=== PATIENT | male | born 1995 | race Two or more races ===

== ENCOUNTER 2021-01-04 11:23 | Outpatient (REF) | payer MEDICAID, SELFPAY | END 2021-01-04 11:24 | disposition home or self-care (01) | LOC: HO.LAB 11:23 | PROVIDERS: Visit Provider Internal Medicine | DX: Z20.822 Contact with and (suspected) exposure to COVID-19 (principal) | CPT/HCPCS: C9803; U0003; U0005 ==

== ENCOUNTER 2021-09-16 16:55 | Emergency (ER) | payer MEDICAID, SELFPAY ==
[2021-09-16 17:48] VITALS: BP 155/105; PULSE 80; RESP 16; TEMP 37.1; O2SAT 99; BMI 30.1
--- NOTE | 2021-09-16 17:51 | ED_ITS ---
HPI - General Adult General Chief complaint: Ear Problems Stated complaint: ear infection and mouth sores Time Seen by Provider: 09/16/21 17:51 Related Data Previous Rx's Medication Instructions Recorded Magic Mouthwash 10 ml PO Q4-6H PRN 5 Days #240 ml 09/16/21 Diphen/Lido/Antacid 1:1:1 240 mL suspension amoxicillin 875 mg-potassium 1 tab PO Q12H 10 Days #20 tab 09/16/21 clavulanate 125 mg tablet (Augmentin) Allergies Allergy/AdvReac Type Severity Reaction Status Date / Time aspirin [ASA] Allergy Unknown BREATHING Verified 09/16/21 21:34 DIFFICULTY ibuprofen [IBUPROFEN] Allergy Unknown UNKNOWN Verified 09/16/21 21:34 PMFSH Past Medical History Medical History Asthma Social History Social History Advance Directives: No Advance Directives Information Provided: No Physical Exam Vital Signs: Vital Signs: Last Vital Signs Temp 98.8 F 09/16/21 17:48 Pulse 68 09/16/21 21:33 Resp 17 09/16/21 21:33 BP 126/76 09/16/21 21:33 Pulse Ox 99 09/16/21 21:33 BMI result Body Mass Index 30.1 Course Course Course Narrative: 17:50pm - 25-year-old male presenting to the ED with complaints of multiple mouth sores and right ear pain/cerumen impaction since yesterday worse today. Denies recent travel or sick contacts. Although he does work for [employer]. Patient will be sent back to the waiting room for further evaluation treatment emergency Minor Care. Discharge Plan Discharge Clinical Impression: Otitis media, Aphthous ulcer of mouth, Hypertension Patient Disposition: Home, Self-Care Instructions: Heart Healthy Diet (ED), Canker Sores (ED), Ear Infection (ED), Hypertension (ED) Additional Instructions: You were evaluated for recurrent ear pain and ulcerations to your mouth. You bilateral ear infection with abscess ulcers. Please take Augmentin twice a day for your ear infections. Please use magic mouthwash every 4-6 hours as directed for mouth pain. Alternate Tylenol 650 mg every 6 hours and Motrin 600 mg every 6 hours as needed for pain management. Please write down what time he take these medications to prevent accidental overdose. Please follow-up with primary care physician. Your blood pressure was elevated, please establish primary care and have blood pressure re-evaluated. You may need blood pressure medications. Thank you for choosing this emergency department for evaluation. Please follow-up with primary care physician as needed. Return to the emergency department for any new, concerning, or worsening symptoms. Prescriptions: New amoxicillin-pot clavulanate [Augmentin] 875-125 mg tablet 1 tab PO Q12H 10 Days Qty: 20 RF: 0 Magic Mouthwash Diphen/Lido/Antacid 1:1:1 240 mL suspension 10 ml PO Q4-6H PRN (Reason: Mouth ulcerations) 5 Days Qty: 240 RF: 0 Referrals: [facility] [Provider [facility]] - 2 days [facility] [place] [facility]Provider Group] - 2 days Stand Alone Forms: Work/School Release Interventions: ED Discharge Assessment Last Done: 09/16/21 21:36 Discharge Date/Time: 09/16/21 21:42
--- NOTE | 2021-09-16 20:51 | ED_ITS ---
HPI - Ear Problem General Chief complaint: Ear Problems Stated complaint: ear infection and mouth sores Time Seen by Provider: 09/16/21 17:51 Source: patient Mode of arrival: ambulatory Limitations: no limitations History of Present Illness HPI Narrative: 25-year-old male presents with bilateral ear pain and multiple ulcerations in his mouth. Has a history of aphthous ulcers since age 18. MD Complaint: ear pain Location: bilateral Duration: constant Severity: moderate Relieving factors: nothing Exacerbating factors: chewing and palpation Context: recent illness Discharge from ear: no Associated symptoms ear: headache and other (Aphthous ulcers) Treatment prior to arrival: oral analgesic Related Data Previous Rx's Medication Instructions Recorded Magic Mouthwash 10 ml PO Q4-6H PRN 5 Days #240 ml 09/16/21 Diphen/Lido/Antacid 1:1:1 240 mL suspension amoxicillin 875 mg-potassium 1 tab PO Q12H 10 Days #20 tab 09/16/21 clavulanate 125 mg tablet (Augmentin) Allergies Allergy/AdvReac Type Severity Reaction Status Date / Time aspirin [ASA] Allergy Unknown BREATHING Verified 09/16/21 21:34 DIFFICULTY ibuprofen [IBUPROFEN] Allergy Unknown UNKNOWN Verified 09/16/21 21:34 Review of Systems Review of Systems: Constitutional: No Fever, No Chills ENT/Mouth: Positive mouth pain,Positive bilateral Ear Pain, No Hoarseness, No sore throat Eyes: No Eye Pain, No Swelling, No Redness, No Foreign Body Cardiovascular: No Chest Pain, No SOB Respiratory: No Cough, No Dyspnea Gastrointestinal: No Nausea, No Vomiting, No Diarrhea, No abdominal Pain Genitourinary: No Dysuria, No Hematuria Musculoskeletal: No joint pain, No Myalgias, No Joint Swelling Skin: No Skin lacerations, No rash Neuro: No Weakness, No Numbness, No Paresthesias, No Loss of Consciousness, No Dizziness, No Headache Psych: No Anxiety/Panic, No Depression Heme/Lymph: no easy bruising, no Lymphadenopathy Endocrine: No Polyuria, No Polydipsia Yes all other systems are reviewed and are negative PMFSH Past Medical History Attestation statement: The following information was validated with the patient. Source: old records reviewed Medical History Asthma Social History Social History Advance Directives: No Advance Directives Information Provided: No Physical Exam Vital Signs: Vital Signs: Last Vital Signs Temp 98.8 F 09/16/21 17:48 Pulse 68 09/16/21 21:33 Resp 17 09/16/21 21:33 BP 126/76 09/16/21 21:33 Pulse Ox 99 09/16/21 21:33 BMI result Body Mass Index 30.1 Appearance: Alert. Oriented X3. No acute distress. Head: Normal external exam. Normocephalic. Atraumatic. No Curry signs noted. No raccoon eyes noted Eyes: PERRLA. EOMI. Conjunctiva and sclera normal. Eyelids normal. ENT: TM's bulging and suppurative, membranes intact no perforations noted. Aphthous ulcerations noted to tongue buccal mucosa. Pharynx normal. Uvula midline. Moist mucous membranes. No trismus noted. No drooling noted. No muffled voice noted. Neck: Normal inspection. Neck supple. No adenopathy. No meningeal signs. No neck mass noted. Full range of motion. Strength 5/5 bands resistance. No axial loading tenderness. CVS: Normal heart rate and rhythm. Heart sound normal. No murmurs noted. Pulses equal to all extremities. Respiratory: No respiratory distress. Painless inspiration. Breath sounds normal. No wheezes/rales/rhonchi noted. Chest nontender. No accessory muscle usage noted or decreased air movement noted. Abdomen: Soft and nontender. Bowel sounds normal in all 4 quadrants. No distention noted. No hepatosplenomegaly noted. No visible injury noted. Back: No CVA tenderness. Full range of motion noted. Skin: Skin warm and dry. Normal skin color. Normal skin turgor. No rashes/lesions/lacerations noted. Extremities: No lower extremity edema. Extremities exhibit normal range of motion. Extremities nontender. Neuro: cranial nerves 2-12 intact, no focal neural deficits, strength 5/5 to all extremities, No motor deficit. No sensory deficit. Course Course Course Narrative: 25-year-old male presents with multiple complaints. States to have bilateral ear pain and multiple mouth ulcerations. Has been getting ulcerations in his mouth since age 18. No indication of Kawasaki, no rashes noted to extremities. No hepatosplenomegaly or abdominal tenderness to palpation. No nuchal rigidity, has full range of motion to neck and extremities. Not have any cervical lymphadenopathy, supraclavicular, and axillary adenopathy. Bilateral tympanic membranes are erythematous bulging and suppurative of without perforation. Will treat with Augmentin and Magic mouthwash. Patient does understand that he must obtain primary care physician, does have an elevated blood pressure and needs follow-up. Patient verbalized understanding of and agrees to plan of care discharge home. MDM - Ear MDM Narrative Medical decision making narrative: Canker sores, herpes simplex, aphthous ulcers Differential Diagnosis Differential diagnosis: Likely otitis externa, otitis media and ruptured TM Medical Records Attestation: I reviewed the patient's medical records. Discharge Plan Discharge Clinical Impression: Aphthous ulcer of mouth Otitis media Qualifiers: Otitis media type: suppurative Chronicity: acute Laterality: bilateral Recurrence: recurrent Spontaneous tympanic membrane rupture: without spontaneous rupture Qualified Code(s): H66.006 - Acute suppurative otitis media without spontaneous rupture of ear drum, recurrent, bilateral Hypertension Qualifiers: Hypertension type: unspecified Qualified Code(s): I10 - Essential (primary) hypertension Patient Disposition: Home, Self-Care Instructions: Heart Healthy Diet (ED), Canker Sores (ED), Ear Infection (ED), Hypertension (ED) Additional Instructions: You were evaluated for recurrent ear pain and ulcerations to your mouth. You bilateral ear infection with abscess ulcers. Please take Augmentin twice a day for your ear infections. Please use magic mouthwash every 4-6 hours as directed for mouth pain. Alternate Tylenol 650 mg every 6 hours and Motrin 600 mg every 6 hours as needed for pain management. Please write down what time he take these medications to prevent accidental overdose. Please follow-up with primary care physician. Your blood pressure was elevated, please establish primary care and have blood pressure re-evaluated. You may need blood pressure medications. Thank you for choosing this emergency department for evaluation. Please follow-up with primary care physician as needed. Return to the emergency department for any new, concerning, or worsening symptoms. Prescriptions: New amoxicillin-pot clavulanate [Augmentin] 875-125 mg tablet 1 tab PO Q12H 10 Days Qty: 20 RF: 0 Magic Mouthwash Diphen/Lido/Antacid 1:1:1 240 mL suspension 10 ml PO Q4-6H PRN (Reason: Mouth ulcerations) 5 Days Qty: 240 RF: 0 Referrals: [facility] [Provider Group] - 2 days [facility] [place] [facility] [Provider Group] - 2 days Stand Alone Forms: Work/School Release Interventions: ED Discharge Assessment Last Done: 09/16/21 21:36 Discharge Date/Time: 09/16/21 21:42
[2021-09-16 21:33] VITALS: BP 126/76; PULSE 68; RESP 17; O2SAT 99
[2021-09-16] MEDS: Mag&Al/Sim/Diphenhyd/Lidocaine 10 ML ORAL.SUSP PO (21:34)
[2021-09-16] MEDS: Amoxicillin/Potassium Clav 875 MG TABLET PO (21:34)
== END 2021-09-16 21:42 | disposition home or self-care (01) ==
PROVIDERS: Emergency Provider Emergency Medicine
DX: K12.0 Recurrent oral aphthae (principal); H66.006 Acute suppurative otitis media without spontaneous rupture of ear drum, recurrent, bilateral; H92.03 Otalgia, bilateral; I10 Essential (primary) hypertension
CPT/HCPCS: 99283

== ENCOUNTER 2021-11-03 18:04 | Emergency (ER) | payer MEDICAID, SELFPAY ==
--- NOTE | ~2021-11-03 | CT_ITS ---
EXAMINATION: CT ABDOMEN AND PELVIS WITH CONTRAST CLINICAL INFORMATION: Severe rectal pain with question of abscess COMPARISON: None TECHNIQUE: Multidetector volumetric images were obtained from the superior aspect of the liver through the pubic symphysis following administration 85 mL of Omnipaque 350 intravenous contrast. Sagittal and coronal reformatted images were obtained on the technologist's workstation. Oral contrast: No This CT examination was performed using dose optimization techniques as appropriate, variously including the following: *Automated exposure control *Adjustment of mA and/or kV according to patient size (this includes techniques or standardized protocols for targeted exams where dose is matched to indication/reason for exam; i.e. extremities or head) *Use of iterative reconstruction technique DLP: 827 mGy-cm FINDINGS: LUNG BASES: The visualized lung bases are unremarkable. LIVER, GALLBLADDER, AND BILIARY TREE: The liver is enlarged measuring 24 cm in greatest length and demonstrates decreased attenuation consistent with hepatic steatosis. No focal hepatic lesion or biliary ductal dilatation is present. The gallbladder is unremarkable with no evidence of radiopaque gallstones, gallbladder wall thickening, or obvious pericholecystic inflammatory changes. PANCREAS: Unremarkable. SPLEEN: Mildly prominent spleen 12.5 cm in greatest cephalocaudad dimension. ADRENAL GLANDS: Unremarkable. KIDNEYS AND URETERS: The kidneys are normal in size, shape, and attenuation. There is a duplex collecting system on the right at least down to the level of the distal ureter. No hydronephrosis, hydroureter, or calculi seen. No perinephric stranding. BLADDER: Unremarkable. GASTROINTESTINAL TRACT: The small and large bowel are unremarkable aside from colonic diverticula without diverticulitis. The appendix is unremarkable. A small 1.1 x 0.7 x 0.8 cm midline peroneal/perianal fluid collection is present ([phone]), presumably a small abscess. ABDOMINAL WALL: No significant hernia is appreciated. LYMPH NODES: No retroperitoneal lymphadenopathy seen. Some mildly prominent left external iliac lymph nodes are seen. VASCULAR: Unremarkable. 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 CT/CT abdomen pelvis w con IMPRESSION: Small fluid collection in the perineum measuring 1.1 cm just posterior to the rectum/anus. These findings would be consistent with a small abscess. Fleischner guidelines were followed.
[2021-11-03 18:07] VITALS: BP 179/89; PULSE 92; RESP 20; TEMP 36.7; O2SAT 100; BMI 32.5
--- NOTE | 2021-11-03 20:22 | ED_ITS ---
HPI - Abdominal Pain General Chief Complaint: Abdominal Pain Stated Complaint: rectal pain Time Seen by Provider: 11/03/21 20:20 Source: patient Mode of arrival: ambulatory Limitations: no limitations History of Present Illness HPI narrative: 25 y/o male presents to the ER with rectal pain for the last 1 week. He reports severe pain with bowel movements and has been constipation. Last BM 1 hour ago and was excruciating. He reports when the pain started he had small amounts of blood on the toilet paper but it self resolved. He thought he had a hemorrhoid so has been using Preparation H without any improvement in his pain. He denies abdominal pain, N/V/D. No fevers. He denies any history of anal sex or any anal FB. MD elicited complaint: other (rectal pain) Pertinent past history: constipation Onset (ago): week(s) (1) Pain Consistency: constant Location: other (rectal) Severity: severe Pain scale (0-10): 10 Quality: sharp Migration to: no migration Exacerbating factors: bowel movement Relieving factors: nothing Associated symptoms: denies other symptoms Related Data Previous Rx's Medication Instructions Recorded Magic Mouthwash 10 ml PO Q4-6H PRN 5 Days #240 ml 09/16/21 Diphen/Lido/Antacid 1:1:1 240 mL suspension amoxicillin 875 mg-potassium 1 tab PO Q12H 10 Days #20 tab 09/16/21 clavulanate 125 mg tablet (Augmentin) amoxicillin 875 mg-potassium 1 tab PO BID #20 tab 11/03/21 clavulanate 125 mg tablet (Augmentin) oxycodone 5 mg tablet 5 mg PO Q4H PRN #10 tab 11/03/21 Allergies Allergy/AdvReac Type Severity Reaction Status Date / Time aspirin [ASA] Allergy Unknown BREATHING Verified 09/16/21 21:34 DIFFICULTY ibuprofen [IBUPROFEN] Allergy Unknown UNKNOWN Verified 09/16/21 21:34 Review of Systems Review of Systems Constitutional: No Fever, No Chills ENT/Mouth: No sore throat Cardiovascular: No Chest Pain, No SOB, No Orthopnea, No Edema Respiratory: No Cough, No Sputum, No Wheezing, No dyspnea Gastrointestinal: No Nausea, No Vomiting, No Diarrhea, No abdominal Pain, No Hematochezia, No Melena, + Rectal pain Genitourinary: No Dysuria, No Urinary Frequency, No Hematuria Musculoskeletal: No joint pain, No Myalgias Skin: No Skin Lesions, No rash Neuro: No Weakness, No Numbness, No Dizziness, No Headache Psych: + Anxiety/Panic, No Depression Heme/Lymph: No Bruising, No Lymphadenopathy Physical Exam Verdana 4l Vital Signs: Verdana 4d Verdana 4d Vital Signs: Verdana 4d Verdana 4Bd Last Vital Signs Verdana 4d Recordist New 4d Recordist New 4d Temp 97.7 F 11/03/21 23:01 Recordist New 4d Pulse 61 11/03/21 23:01 Recordist New 4d Resp 16 11/03/21 23:01 BP 126/75 11/03/21 23:01 Pulse Ox 98 11/03/21 23:01 BMI result Body Mass Index 32.5 Appearance: Alert. Oriented X3. No acute distress. Eyes: Pupils equal, round and reactive to light. ENT: Pharynx normal. Neck: Normal inspection. Neck supple. CVS: Normal heart rate and rhythm. Pulses normal. Respiratory: No respiratory distress. Breath sounds normal. Abdomen: Soft and nontender. +BS x4 WALT: normal external inspection, no visible hemorrhoids, normal rectal tone with significant tenderness, no palpable internal hemorrhoid, no palpable abscess, fluctuance or mass Skin: Skin warm and dry. Normal skin color. Normal skin turgor. No rashes. Extremities: No lower extremity edema. Neuro: Oriented X 3. No motor deficit. No sensory deficit. Course Course Course Narrative: 25-year-old otherwise healthy male presents to the ER with rectal pain for last 1 week. He reports small amount of blood on the toilet tissue when it 1st started which self-resolved. No history of hemorrhoids. No visible hemorrhoids on examination. He has significant rectal tenderness without palpable abscess. His pain is out of proportion to examination findings. Will get a CT scan for further evaluation to rule out perirectal abscess. IV morphine ordered for his severe pain as well as IV fluids. Reevaluation(s) Reevaluation #1: WBC 11.3. CT scan showing a small fluid collection in the perineum measuring 1.1 cm just posterior to the rectum/anus. This is consistent with a small rectal abscess. Case was discussed with Dr. Millard as who states the patient can be safely discharged home with oral antibiotics and pain control, plan to follow-up in the office with him tomorrow. Instructions and results were discussed with the patient at the bedside. He will call Dr. Millard his office 1st thing tomorrow morning to arrange an appointment. Stable for discharge home with close outpatient follow-up. Consultations Consultation #1: Dr. jerome - general surgery MDM - Abdominal Pain Lab Data Result diagrams: 11/03/21 21:25 11/03/21 21:25 Labs: Lab Results 11/03/21 11/03/21 11/03/21 Range/Units 21:25 21:25 21:25 WBC 11.3 H (4.8-10.8) X10*3/uL RBC 5.43 (4.60-5.80) X10*6/uL Hgb 15.2 (14.0-18.0) g/dl Hct 46.2 (42.0-52.0) % MCV 85.1 (80.0-98.0) fL MCH 28.0 (27.0-33.0) pg MCHC 32.9 (31.0-36.0) g/dl RDW 12.3 (11.0-16.0) % Plt Count 303 (160-400) X10*3/uL MPV 9.8 (9.4-12.4) fL Immature Gran % (Auto) 0.3 (0.0-0.4) % Neut % (Auto) 74.0 H (45-73) % Lymph % (Auto) 16.4 L (20-40) % Winston % (Auto) 7.1 (2-11) % Eos % (Auto) 1.7 (0-4) % Baso % (Auto) 0.5 (0-2) % Lymph # (Auto) 1.8 (1.2-4.9) X10*3/uL Winston # (Auto) 0.8 (0.1-1.2) X10*3/uL Eos # (Auto) 0.2 (0.0-0.4) X10*3/uL Baso # (Auto) 0.1 (0.0-0.2) X10*3/uL Abs Immat Gran (auto) 0.03 (0.00-0.03) X10*3/uL Absolute Neuts (auto) 8.3 (2.0-8.3) x10*3/uL Absolute Nucleated RBC 0.000 (0.0-0.012) X10*3/uL Nucleated RBC % (auto) 0.0 (0.0-0.2) /100WBC PT 12.3 (9.9-13.0) SEC INR 1.1 (0.9-1.1) APTT 48.3 H (24.1-38.0) SEC Sodium 139 (135-145) mmol/L Potassium 4.2 (3.3-5.1) mmol/L Chloride 104 (96-108) mmol/L Carbon Dioxide 26 (22-29) mmol/L Anion Gap 13 (12-20) BUN 14 (9-16) mg/dL Creatinine 0.98 (0.5-1.4) mg/dL Estim Creat Clear Calc 136.5 Estimated GFR > 60 Random Glucose 98 (60-115) mg/dL Calcium 9.8 (8.4-10.2) mg/dL Magnesium 2.2 (1.6-2.6) mg/dL Total Bilirubin 1.3 H (0.0-1.0) mg/dL Direct Bilirubin 0.4 (0.0-0.5) mg/dL AST 22 (5-37) U/L ALT 22 (0-40) U/L Alkaline Phosphatase 74 (39-117) U/L Total Protein 8.3 H (6.5-8.0) g/dL Albumin 4.9 (3.5-5.0) g/dL Discharge Plan Discharge Clinical Impression: Mayte-rectal abscess Patient Disposition: Home, Self-Care Instructions: Rectal Abscess (ED) Additional Instructions: Your CT scan showed a small 1 cm abscess within the rectum. You need to follow-up with this general surgeon 1st thing tomorrow. Call the office at 08:30. Name and number below. They are expecting your call. Take the prescribed antibiotic as directed. Take the prescribed pain medication as needed for severe pain. Recommend Tylenol around the clock. Do not take more than 4000 mg in a 24 hour period. If you develop new or worsening symptoms call 911 or come back to the ER for further evaluation. Prescriptions: New amoxicillin-pot clavulanate [Augmentin] 875-125 mg tablet 1 tab PO BID Qty: 20 0RF oxycodone 5 mg tablet 5 mg PO Q4H PRN (Reason: pain) Qty: 10 0RF No Action amoxicillin-pot clavulanate [Augmentin] 875-125 mg tablet 1 tab PO Q12H 10 Days Qty: 20 0RF Magic Mouthwash Diphen/Lido/Antacid 1:1:1 240 mL suspension 10 ml PO Q4-6H PRN (Reason: Mouth ulcerations) 5 Days Qty: 240 0RF Rx Instructions: Lidocaine Viscous 2 % 80mL; diphenhydramine 12.5 mg/5 mL 80mL; aluminum-mag hydrox-simeth 981gd-904dz-30hg/5mL 80mL Referrals: Jordan Jerome MD [Physician] - 1 day (perirectal abscess) PMFSH Past Medical History Medical History Asthma Social History Social History Advance Directives: No
[2021-11-03] MEDS: 0.9 % Sodium Chloride 1,000 ML 999 ML IVCONT (21:26)
[2021-11-03] MEDS: Morphine Sulfate 4 MG/ML CARTRIDGE IVPUSH (21:26)
[2021-11-03 21:36] LABS: MANUAL DIFF FLAG NO
[2021-11-03 21:39] LABS: Basophils Absolute Auto 0.1 X10*3/uL (0.0-0.2); Basophils Percent Auto 0.5 % (0-2); Eosinophils Absolute Auto 0.2 X10*3/uL (0.0-0.4); Eosinophils Percent Auto 1.7 % (0-4); Hematocrit 46.2 % (42.0-52.0); Hemoglobin 15.2 g/dl (14.0-18.0); Imm Gran Abs Auto 0.03 X10*3/uL (0.00-0.03); Imm Gran Pct Auto 0.3 % (0.0-0.4); Lymphocytes Absolute Auto 1.8 X10*3/uL (1.2-4.9); Lymphocytes Percent Auto 16.4 % (20-40); Mean Corpuscular HGB Conc 32.9 g/dl (31.0-36.0); Mean Corpuscular Volume 85.1 fL (80.0-98.0); Mean Platelet Volume 9.8 fL (9.4-12.4); Monocytes Absolute Auto 0.8 X10*3/uL (0.1-1.2); Monocytes Percent Auto 7.1 % (2-11); Neutrophils Absolute Auto 8.3 x10*3/uL (2.0-8.3); Platelet Count 303 X10*3/uL (160-400); Red Blood Count 5.43 X10*6/uL (4.60-5.80); Red Cell Distribution Width 12.3 % (11.0-16.0); White Blood Count 11.3 X10*3/uL (4.8-10.8)
[2021-11-03 21:48] LABS: INTERNATIONAL NORM RATIO 1.1 (0.9-1.1); Prothrombin Time 12.3 SEC (9.9-13.0)
[2021-11-03 21:51] LABS: Alanine Aminotransferase 22 U/L (0-40); Albumin Level 4.9 g/dL (3.5-5.0); Alkaline Phosphatase 74 U/L (39-117); Anion Gap 13 (12-20); Aspartate Amino Transferase 22 U/L (5-37); Bilirubin Direct 0.4 mg/dL (0.0-0.5); Bilirubin Total 1.3 mg/dL (0.0-1.0); Blood Urea Nitrogen 14 mg/dL (9-16); Calcium 9.8 mg/dL (8.4-10.2); Carbon Dioxide 26 mmol/L (22-29); Chloride 104 mmol/L (96-108); Creatinine Clr Calc Pharmacy 136.5; Estimated Glomerular Filt Rate > 60; Glucose Random 98 mg/dL (60-115); Magnesium 2.2 mg/dL (1.6-2.6); Partial Thromboplastin Time 48.3 SEC (24.1-38.0); Potassium 4.2 mmol/L (3.3-5.1); Sodium 139 mmol/L (135-145); Total Protein 8.3 g/dL (6.5-8.0)
[2021-11-03] MEDS: iohexoL 350 MG/ML 100 ML INFUS..BTL 85 ML IV (22:24)
[2021-11-03 23:01] VITALS: BP 126/75; PULSE 61; RESP 16; TEMP 36.5; O2SAT 98
[2021-11-03] MEDS: Amoxicillin/Potassium Clav 875 MG TABLET PO (23:41)
[2021-11-03] MEDS: oxyCODONE HCl Immed Release 5 MG TABLET PO (23:41)
== END 2021-11-03 23:50 | disposition home or self-care (01) ==
PROVIDERS: Physician Assistant; Emergency Provider Emergency Medicine Emergency Medical Services
DX: K61.1 Rectal abscess (principal); Z79.899 Other long term (current) drug therapy
CPT/HCPCS: 36415; 74177; 80048; 80076; 83735; 85025; 85610; 85730; 96360; 96361; 96375; 99284; J2270; Q9967

== ENCOUNTER → 2021-11-06 15:01 | Outpatient (BNVA) | payer MEDICAID, SELFPAY | PROVIDERS: Visit Provider Surgery | DX: K61.0 Anal abscess (principal) | CPT/HCPCS: 99202 ==

== ENCOUNTER 2021-11-07 13:04 | Day surgery (SDC) | payer MEDICAID, SELFPAY ==
[2021-11-07] VITALS (9 sets, daily range): BP systolic 134–152; BP diastolic 74–99; PULSE 81–96; RESP 16–18; TEMP 36.5–36.6; O2SAT 96–100; BMI 33.7
--- NOTE | 2021-11-07 13:59 | HO.ANESPROP2 ---
HPI - Anesthesia Eval Consult details Narrative: Perirectal abscess PMFSH Active Problems Active Problems: All Active Problems (Updated 11/07/21 @ 13:29 by Ursula Hsieh RN) Perianal abscess (Acute) Past Medical History Medical History (Updated 11/07/21 @ 13:29 by Ursula Hsieh, RN) Asthma Bradycardia Perianal abscess Family History Family history of problems with anesthesia: No Surgical History History of Problems with Anesthesia: No Social History Social History Patient Tobacco Use Status: Never used Tobacco Use of substances other than those prescribed or required for medical reasons: No Are you DNR?: No Advance Directives: No Advance Directives Information Provided: Yes Recently lost weight without trying: No Nutrition Risks: No Nutritional Risk Meds Allergies Allergy/AdvReac Type Severity Reaction Status Date / Time aspirin [ASA] Allergy Unknown BREATHING Verified 11/06/21 15:22 DIFFICULTY ibuprofen [IBUPROFEN] Allergy Unknown UNKNOWN Verified 11/06/21 15:22 Exam Exam Date and Time: November 07, 2021 1359 Height,Weight and Vital Signs: Height 5 ft 9 in Weight 103.873 kg Airway Mallampati Class: II TM Dist: >3cm Neck ROM: Full Loose/Missing/Broken Teeth: No Heart: [id number] Lungs: cta b/l Assessment and Plan Assessment Anesthesia Assessment: Anesthesia Plan Discussed and Chart Reviewed Final Anesthetic Review Family History of Problems with Anesthesia: No History of Problems with Anesthesia: No NPO: Yes ASA Class: II Final Preanesthetic Review: No Changes in Pt Med Stat, Meds/Allgs Chart Reviewed, Consent Obtained/Reviewed and Anes Risks/Benef Reviewed Patient Risk: Intermediate Procedure Risk: Low Assessment/Block/Sedation in SS: Assess/Block/Sedation-SS Anesthetic Plan Anesthetic Plan: GA and Agree w/ Assess. and Plan Disposition: Standard PACU
--- NOTE | 2021-11-07 14:04 | MHC.SHP ---
Pre-Procedural Eval Section A Date of Service: 11/07/21 The patient is an INPATIENT: No Changes since office visit: No Cold of Flu in the past 2 weeks, No New Medical Problems, No Changes in Medication and No Patient answered all questions The History & Physical has been completed within 30 days and I have reviewed it.: Yes Section B Chief Complaint: hemorrhoids Allergies: Allergies Allergy/AdvReac Type Severity Reaction Status Date / Time aspirin [ASA] Allergy Unknown BREATHING Verified 11/06/21 15:22 DIFFICULTY ibuprofen [IBUPROFEN] Allergy Unknown UNKNOWN Verified 11/06/21 15:22 Plan I have reviewed the history and physical and performed a pertinent physical examination on my patient. No changes have occurred unless specified.
--- NOTE | 2021-11-07 15:22 | W.PM.OPN ---
Operative Note Operative Note Date of Service: 11/07/21 Narrative: Preop diagnosis: Anal pain question of perianal abscess Postop diagnosis: anal pain with no identifiable abscess, induration, or swelling Procedure: Exam under anesthesia Surgeon: Jordan Jerome Patient is a 25-year-old male who went to the ER 3 days ago because of anal pain. His CAT scan seemed to suggest a small abscess in the perianal area. He was started on oral antibiotics as there was no fluctuance or induration. he was seen in the office yesterday and he stated that he continued severe pain. He seemed to be tender all around the perianal area although there was no obvious fluctuance, drainage, or induration I had reviewed his CAT scan with the radiologist Dr. Hernandez, in his stated that there may not be any fluid that may be drainable at this time.In view of severe pain However, I explained to the patient it may be best to proceed with exam under anesthesia and we can see if there are any fluctuant areas in the anal canal. He understood the technique of the procedure. He was aware of the risks, benefits, and alternatives. He was brought to the operating placed in prone abhi-knife position under general anesthesia via endotracheal tube. The buttocks were retracted with wide tape laterally. The perianal area was prepped draped usual sterile fashion. Surgical time-out was done. Lidocaine 1% was used to infiltrate the perianal area. Examination of the anal orifice did not reveal any fluctuance nor palpable duration no cellulitis or redness I inserted abuse Lombardi retractor. I examined the anal canal circumferentially. Again there was no note of any swelling induration or fluctuance. I palpated for the entire anal canal and I could not feel any obvious abscess or induration. A focus more the left side as the CT scan suggested that the small fluid collection on could maybe in the left perianal area. I made 2 small incisions 1 in the area of the intersphincteric groove using a blade 11 and I explored the intersphincteric space to see if there was any intersphincteric abscess and there was none. I also made a short incision in the anal canal on the left side in the mucosa submucosa to see if there was any submucosal abscess. Again with exploring this using the hemostat, I could not identify any fluid collection . I closed both incisions with a running chromic 3-0 stitch with additional sutures placed for hemostasis I proceeded to continue to examine and palpate the entire sent comfortable of the anal canal. Again I could not identify any pathology or any unusual characteristics. I therefore completed the procedure. I infiltrated the perianal area with Marcaine 0.5% for postop analgesia. The patient tolerated the procedure well. There were no complications noted. The patient was extubated without difficulty and transferred to the recovery room with stable vital signs.
[2021-11-07] MEDS: oxyCODONE HCl Immed Release 5 MG TABLET 10 MG PO (15:55)
[2021-11-07] MEDS: fentaNYL citrate/PF 100 MCG/2 ML VIAL 50 MCG IVPUSH (16:03)
[2021-11-07] MEDS: Acetaminophen 325 MG TABLET 650 MG PO (16:38)
== END 2021-11-07 17:04 | disposition home or self-care (01) ==
PROVIDERS: Visit Provider Surgery
PROC: (CPT 45990; principal; 2021-11-07 14:30)
DX: K62.89 Other specified diseases of anus and rectum (principal); J45.909 Unspecified asthma, uncomplicated; R00.1 Bradycardia, unspecified; Z88.8 Allergy status to other drugs, medicaments and biological substances; Z79.899 Other long term (current) drug therapy
CPT/HCPCS: 45990; J1100; J2250; J2405; J3010

== ENCOUNTER → 2021-11-21 09:22 | Outpatient (BNVA) | payer MEDICAID, SELFPAY | PROVIDERS: PCP Nurse Practitioner; Referring Provider Nurse Practitioner; Visit Provider Surgery | DX: Z48.89 Encounter for other specified surgical aftercare (principal) | CPT/HCPCS: 99212 ==

== ENCOUNTER 2022-01-02 08:31 | Emergency (ER) | payer MEDICAID, SELFPAY ==
--- NOTE | ~2022-01-02 | CT_ITS ---
EXAMINATION: CT ABDOMEN AND PELVIS WITH CONTRAST CLINICAL INFORMATION: Evaluate rectal abscess versus fistula COMPARISON: 01/01/2022 TECHNIQUE: Multidetector volumetric images were obtained from the superior aspect of the liver through the pubic symphysis following administration 85 mL of Omnipaque 350 intravenous contrast. Sagittal and coronal reformatted images were obtained on the technologist's workstation. Oral contrast: No This CT examination was performed using dose optimization techniques as appropriate, variously including the following: *Automated exposure control *Adjustment of mA and/or kV according to patient size (this includes techniques or standardized protocols for targeted exams where dose is matched to indication/reason for exam; i.e. extremities or head) *Use of iterative reconstruction technique DLP: 762 mGy-cm FINDINGS: LUNG BASES: The visualized lung bases are unremarkable. LIVER, GALLBLADDER, AND BILIARY TREE: The liver is normal in size, shape, and attenuation. No focal hepatic lesion or biliary ductal dilatation is present. The gallbladder is unremarkable with no evidence of radiopaque gallstones, gallbladder wall thickening, or obvious pericholecystic inflammatory changes. PANCREAS: Unremarkable. SPLEEN: Unremarkable. ADRENAL GLANDS: Unremarkable. KIDNEYS AND URETERS: The kidneys are normal in size, shape, and attenuation. Duplicated right collecting system. Mild right hydroureteronephrosis involving both the upper and lower pole moieties. No calculi. The appearance is similar to previous. BLADDER: Unremarkable. GASTROINTESTINAL TRACT: The stomach is unremarkable. Normal caliber small bowel. No obstruction. No colonic wall thickening or acute inflammation. No free air or free fluid. The previous fluid collection in the perineal region has resolved. Mild skin thickening along the left gluteal cleft remains. ABDOMINAL WALL: No significant hernia is appreciated. LYMPH NODES: Normal. VASCULAR: Normal caliber aorta. Duplicated IVC noted. PELVIC VISCERA: The prostate and seminal vesicles are unremarkable. OSSEOUS STRUCTURES: No acute or suspicious osseous abnormality. CT/CT abdomen pelvis w con IMPRESSION: Resolution of the previous perineal fluid collection. There is mild skin thickening along the left gluteal cleft with no focal collection at this time. 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 Fleischner guidelines were followed.
[2022-01-02 08:40] VITALS: BP 136/76; PULSE 59; RESP 18; TEMP 36.8; O2SAT 97; BMI 33.0
--- NOTE | 2022-01-02 08:44 | ED_ITS ---
HPI - Wound/Laceration General Chief Complaint: Wound/Laceration <AURELIO Guillen Last Filed: 01/02/22 14:21> Stated Complaint: wound check bleeding <AURELIO Guillen Last Filed: 01/02/22 14:21> Time Seen by Provider: 01/02/22 08:43 <AURELIO Guillen Last Filed: 01/02/22 14:21> Source: patient <AURELIO Guillen Last Filed: 01/02/22 14:21> Mode of arrival: ambulatory <AURELIO Guillen Last Filed: 01/02/22 14:21> History of Present Illness HPI narrative: 26-year-old male with a past medical history of asthma, bradycardia, perianal abscess seen on CT 11/03/2021, presenting to the ED complaining of bright red blood in [place] s/p Sitz bath yesterday. Reports intermittent blood since OR procedure on 11/07/21, however overall improved symptomatology. Reports mild nausea and constipation. Does admit to mild pus drainage. Denies rectal pain with BMs, abdominal pain, vomiting, diarrhea, fever, chills <AURELIO Guillen Last Filed: 01/02/22 14:21> Onset (ago): day(s) <AURELIO Guillen Last Filed: 01/02/22 14:21> Related Data Home Medications: Previous Rx's Medication Instructions Recorded Magic Mouthwash 10 ml PO Q4-6H PRN 5 Days #240 ml 09/16/21 Diphen/Lido/Antacid 1:1:1 240 mL suspension amoxicillin 875 mg-potassium 1 tab PO Q12H 10 Days #20 tab 09/16/21 clavulanate 125 mg tablet (Augmentin) amoxicillin 875 mg-potassium 1 tab PO BID #20 tab 11/03/21 clavulanate 125 mg tablet (Augmentin) oxycodone 5 mg tablet 5 mg PO Q4H PRN #10 tab 11/06/21 docusate sodium 100 mg capsule 100 mg PO BID #60 cap 11/07/21 (Colace) oxycodone-acetaminophen 5 mg-325 1 tab PO Q4-6H PRN #15 tab 11/07/21 mg tablet (Percocet) amoxicillin 875 mg-potassium 1 tab PO BID 7 Days #14 tab 01/02/22 clavulanate 125 mg tablet <AURELIO Guillen Last Filed: 01/02/22 14:21> Allergies/Adverse Reactions: Allergies Allergy/AdvReac Type Severity Reaction Status Date / Time aspirin [ASA] Allergy Unknown BREATHING Verified 11/21/21 09:50 DIFFICULTY ibuprofen [IBUPROFEN] Allergy Unknown UNKNOWN Verified 11/21/21 09:50 <AURELIO Guillen - Last Filed: 01/02/22 14:21> Review of Systems Review of Systems: Constitutional: No Fever, No Chills,No Fatigue, No Malaise ENT/Mouth: No Ear Pain, No Nasal Congestion,No sore throat, No Rhinorrhea, No Swallowing Difficulty Eyes: No Eye Pain, No Swelling, No Redness Cardiovascular: No Chest Pain, No SOB, No Palpitations Respiratory: No Cough, No Sputum, No Dyspnea Gastrointestinal: + Nausea, No Vomiting, No Diarrhea, + Constipation, No Abdominal pain, +brbpr, No Melena Genitourinary: No irregular bleeding, No Dysuria, No Urinary Frequency, No Hematuria Musculoskeletal: No joint pain, No Myalgias, No Joint Swelling Skin: No Skin Lesions, No rash Neuro: No Weakness, No Dizziness, No Headache <AURELIO Guillen Last Filed: 01/02/22 14:21> Yes all other systems are reviewed and are negative <AURELIO Guillen Last Filed: 01/02/22 14:21> FOR[facility]LY [facility], [facility] Past Medical History Attestation statement: The following information was validated with the patient. <AURELIO Guillen Last Filed: 01/02/22 14:21> Medical History: Medical History Asthma Bradycardia Perianal abscess <AURELIO Guillen Last Filed: 01/02/22 14:21> Social History Social History: Social History Patient Tobacco Use Status: Never used Tobacco <AURELIO Guillen Last Filed: 01/02/22 14:21> Physical Exam Vital Signs: Vital Signs: Last Vital Signs Temp 98.3 F 04/07/22 08:40 Pulse 59 01/02/22 08:40 Resp 18 01/02/22 08:40 BP 136/76 01/02/22 08:40 Pulse Ox 97 01/02/22 08:40 BMI result Body Mass Index 33.0 <AURELIO Guillen - Last Filed: 01/02/22 14:21> Const: General: cooperative, healthy appearing and no acute distress <AURELIO Guillen - Last Filed: 01/02/22 14:21> Orientation/consciousness: patient oriented x3 <AURELIO Guillen - Last Filed: 01/02/22 14:21> Limitations: no limitations <AURELIO Guillen - Last Filed: 01/02/22 14:21> HEENT: Head: Yes normal to inspection <AURELIO Guillen - Last Filed: 01/02/22 14:21> Ears: hearing grossly normal bilaterally <AURELIO Guillen - Last Filed: 01/02/22 14:21> General nose exam: Normal external nose present <AURELIO Guillen - Last Filed: 01/02/22 14:21> Face and sinus: Yes normal facial exam <AURELIO Guillen - Last Filed: 01/02/22 14:21> Eyes: General: appearance normal, both eyes and all related structures <AURELIO Guillen - Last Filed: 01/02/22 14:21> EOM: EOMs intact bilaterally <AURELIO Guillen - Last Filed: 01/02/22 14:21> Neck: Neck: Yes normal visual inspection and Yes no meningeal signs <AURELIO Guillen - Last Filed: 01/02/22 14:21> Resp: Effort & Inspection: normal respiratory effort and no respiratory distress <AURELIO Guillen - Last Filed: 01/02/22 14:21> Cardio: Rate: regular rate <AURELIO Guillen - Last Filed: 01/02/22 14:21> Heart sounds: S1 normal heart sound present and S2 normal heart sound present <AURELIO Guillen - Last Filed: 01/02/22 14:21> GI: Other: +purulent pus drainage noted in rectum, with significant perianal tenderness. + diffuse small perianal fluctuance at 6-9 o'clock position, no appreciable fissure, no bleeding, no discrete abscess. No hemorrhoids, no induration. Normal rectal tone. No mass <AURELIO Guillen - Last Filed: 01/02/22 14:21> Inspection: Yes normal to inspection <Jessica Britt PA - Last Filed: 01/02/22 14:21> Palpation (GI): Soft to palpation, nontender, no guarding and not rigid <Jessica Britt PA - Last Filed: 01/02/22 14:21> : General: Yes no CVA tenderness <Jessica Britt PA - Last Filed: 01/02/22 14:21> Back/Spine/Pelvis: Back: no CVA tenderness <Jessica Britt PA - Last Filed: 01/02/22 14:21> Skin: Rashes: no rashes <Jessica Britt PA - Last Filed: 01/02/22 14:21> Wounds: no wounds <Jessica Britt PA - Last Filed: 01/02/22 14:21> Neuro: General: patient oriented x3 and no meningeal signs <AURELIO Guillen - Last Filed: 01/02/22 14:21> Gait exam (Neuro): Normal gait present <Jessica Brtit PA - Last Filed: 14:21> Extrem: General: Yes normal to inspection <AURELIO Guillen - Last Filed: 01/02/22 14:21> Course Course Course Narrative: -1240--no leukocytosis. Labs otherwise unremarkable. UA negative CT abdomen pelvis w con IMPRESSION: Resolution of the previous perineal fluid collection. There is mild skin thickening along the left gluteal cleft with no focal collection at this time. ? 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 ? Fleischner guidelines were followed. >> case discussed with Dr. Jerome, he will come eval patient in the ED this afternoon -Dr. Jerome evaluated patient in the ED in plans to take patient to OR tomorrow for I & D. Will discharge on Augmentin <AURELIO Guillen - Last Filed: 01/02/22 14:21> MDM - Wound/Laceration MDM Narrative Medical decision making narrative: 26-year-old male with a past medical history of asthma, bradycardia, perianal abscess seen on CT 11/03/2021, presenting to the ED complaining of bright red blood in [place] s/p Sitz bath yesterday. On exam vital signs stable, NAD, physical exam as above with significant perianal tenderness and appreciable fluctuance, with pus drainage in rectum. Concern for recurrent abscess vs fistula. Plan: Labs, UA, CT <AURELIO Guillen - Last Filed: 01/02/22 14:21> Differential Diagnosis Differential diagnosis: Likely abscess <AURELIO Guillen - Last Filed: 01/02/22 14:21> Medical Records Attestation: I reviewed the patient's medical records. <AURELIO Guillen - Last Filed: 01/02/22 14:21> Lab Data Attestation: I reviewed the patient's lab results. <AURELIO Guillen - Last Filed: 01/02/22 14:21> Result diagrams: : 01/02/22 10:17 01/02/22 10:17 <AURELIO Guillen - Last Filed: 01/02/22 14:21> Labs: Lab Results 01/02/22 01/02/22 01/02/22 Range/Units 10:16 10:17 10:17 WBC 5.2 (4.8-10.8) X10*3/uL RBC 5.17 (4.60-5.80) X10*6/uL Hgb 14.3 (14.0-18.0) g/dl Hct 43.3 (42.0-52.0) % MCV 83.8 (80.0-98.0) fL MCH 27.7 (27.0-33.0) pg MCHC 33.0 (31.0-36.0) g/dl RDW 12.6 (11.0-16.0) % Plt Count 269 (160-400) X10*3/uL MPV 9.9 (9.4-12.4) fL Immature Gran % (Auto) 0.2 (0.0-0.4) % Neut % (Auto) 57.6 (45-73) % Lymph % (Auto) 30.1 (20-40) % [place] % (Auto) 8.6 (2-11) % Eos % (Auto) 2.9 (0-4) % Baso % (Auto) 0.6 (0-2) % Lymph # (Auto) 1.6 (1.2-4.9) X10*3/uL [place] # (Auto) 0.5 (0.1-1.2) X10*3/uL Eos # (Auto) 0.2 (0.0-0.4) X10*3/uL Baso # (Auto) 0.0 (0.0-0.2) X10*3/uL Abs Immat Gran (auto) 0.01 (0.00-0.03) X10*3/uL Absolute Neuts (auto) 3.0 (2.0-8.3) x10*3/uL Absolute Nucleated RBC 0.000 (0.0-0.012) X10*3/uL Nucleated RBC % (auto) 0.0 (0.0-0.2) /100WBC PT 11.6 (9.9-13.0) SEC INR 1.0 (0.9-1.1) APTT 45.1 H (24.1-38.0) SEC Sodium (135-145) mmol/L Potassium (3.3-5.1) mmol/L Chloride (96-108) mmol/L Carbon Dioxide (22-29) mmol/L Anion Gap (12-20) BUN (9-16) mg/dL Creatinine (0.5-1.4) mg/dL Estim Creat Clear Calc Estimated GFR Random Glucose (60-115) mg/dL Calcium (8.4-10.2) mg/dL Total Bilirubin (0.0-1.0) mg/dL Direct Bilirubin (0.0-0.5) mg/dL AST (5-37) U/L ALT (0-40) U/L Alkaline Phosphatase (39-117) U/L Total Protein (6.5-8.0) g/dL Albumin (3.5-5.0) g/dL Urine Color STRAW Urine Appearance CLEAR Urine pH 6.0 (5.0-8.0) Ur Specific [place] 1.015 (1.005-1.025) Urine Protein NEG (NEG-TRACE) MG/DL Urine Glucose (UA) NEG (NEG) MG/DL Urine Ketones NEG (NEG) MG/DL Urine Blood NEG (NEG) Urine Nitrite NEG (NEG) Ur Leukocyte Esterase NEG (NEG) 01/02/22 Range/Units 10:17 WBC (4.8-10.8) X10*3/uL RBC (4.60-5.80) X10*6/uL Hgb (14.0-18.0) g/dl Hct (42.0-52.0) % MCV (80.0-98.0) fL MCH (27.0-33.0) pg MCHC (31.0-36.0) g/dl RDW (11.0-16.0) % Plt Count (160-400) X10*3/uL MPV (9.4-12.4) fL Immature Gran % (Auto) (0.0-0.4) % Neut % (Auto) (45-73) % Lymph % (Auto) (20-40) % [place] % (Auto) (2-11) % Eos % (Auto) (0-4) % Baso % (Auto) (0-2) % Lymph # (Auto) (1.2-4.9) X10*3/uL [place] # (Auto) (0.1-1.2) X10*3/uL Eos # (Auto) (0.0-0.4) X10*3/uL Baso # (Auto) (0.0-0.2) X10*3/uL Abs Immat Gran (auto) (0.00-0.03) X10*3/uL Absolute Neuts (auto) (2.0-8.3) x10*3/uL Absolute Nucleated RBC (0.0-0.012) X10*3/uL Nucleated RBC % (auto) (0.0-0.2) /100WBC PT (9.9-13.0) SEC INR (0.9-1.1) APTT (24.1-38.0) SEC Sodium 138 (135-145) mmol/L Potassium 4.3 (3.3-5.1) mmol/L Chloride 105 (96-108) mmol/L Carbon Dioxide 24 (22-29) mmol/L Anion Gap 13 (12-20) BUN 11 (9-16) mg/dL Creatinine 0.80 (0.5-1.4) mg/dL Estim Creat Clear Calc 172.2 Estimated GFR > 60 Random Glucose 92 (60-115) mg/dL Calcium 9.9 (8.4-10.2) mg/dL Total Bilirubin 1.5 H (0.0-1.0) mg/dL Direct Bilirubin 0.5 (0.0-0.5) mg/dL AST 21 (5-37) U/L ALT 25 (0-40) U/L Alkaline Phosphatase 64 (39-117) U/L Total Protein 7.6 (6.5-8.0) g/dL Albumin 4.6 (3.5-5.0) g/dL Urine Color Urine Appearance Urine pH (5.0-8.0) Ur Specific [place] (1.005-1.025) Urine Protein (NEG-TRACE) MG/DL Urine Glucose (UA) (NEG) MG/DL Urine Ketones (NEG) MG/DL Urine Blood (NEG) Urine Nitrite (NEG) Ur Leukocyte Esterase (NEG) <AURELIO Guillen - Last Filed: 01/02/22 14:21> Discharge Plan Discharge Clinical Impression: Perianal abscess <AURELIO Guillen - Last Filed: 01/02/22 14:21> Patient Disposition: Home, Self-Care <AURELIO Guillen - Last Filed: 01/02/22 14:21> Instructions: Anorectal Abscess and Anal Fistula (ED) <AURELIO Guillen - Last Filed: 01/02/22 14:21> Additional Instructions: Your CT scan did not show any fluid collection/abscess, however due to your physical exam and evaluation by specialist you're being scheduled for surgery tomorrow for further evaluation and likely I and D. Augmentin is an antibiotic, please take as prescribed If symptoms persist or worsen, pain becomes unbearable, or you develop fever please return to the emergency department Follow-up tomorrow as scheduled for surgery <AURELIO Guillen Last Filed: 01/02/22 14:21> Prescriptions: New amoxicillin-pot clavulanate 875-125 mg tablet 1 tab PO BID 7 Days Qty: 14 0RF No Action amoxicillin-pot clavulanate [Augmentin] 875-125 mg tablet 1 tab PO Q12H 10 Days Qty: 20 0RF Magic Mouthwash Diphen/Lido/Antacid 1:1:1 240 mL suspension 10 ml PO Q4-6H PRN (Reason: Mouth ulcerations) 5 Days Qty: 240 0RF Rx Instructions: Lidocaine Viscous 2 % 80mL; diphenhydramine 12.5 mg/5 mL 80mL; aluminum-mag hydrox-simeth [id number]/5mL 80mL amoxicillin-pot clavulanate [Augmentin] 875-125 mg tablet 1 tab PO BID Qty: 20 0RF oxycodone-acetaminophen [Percocet] 5-325 mg tablet 1 tab PO Q4-6H PRN (Reason: pain, severe) Qty: 15 0RF docusate sodium [Colace] 100 mg capsule 100 mg PO BID Qty: 60 2RF oxycodone 5 mg tablet 5 mg PO Q4H PRN (Reason: pain) Qty: 10 0RF <AURELIO Guillen - Last Filed: 01/02/22 14:21> Referrals: Jordan Jerome MD [Physician] - 1 day <AURELIO Guillen - Last Filed: 01/02/22 14:21> Interventions: ED Discharge Assessment Last Done: 01/02/22 14:28 <AURELIO Guillen - Last Filed: 01/02/22 14:21> Discharge Date/Time: 01/02/22 14:28 <AURELIO Guillen - Last Filed: 01/02/22 14:21>
[2022-01-02] MEDS: 0.9 % Sodium Chloride 1,000 ML 999 ML IV (10:18)
[2022-01-02 10:23] LABS: MANUAL DIFF FLAG NO
[2022-01-02 10:25] LABS: Basophils Percent Auto 0.6 % (0-2); Eosinophils Absolute Auto 0.2 X10*3/uL (0.0-0.4); Eosinophils Percent Auto 2.9 % (0-4); Hematocrit 43.3 % (42.0-52.0); Hemoglobin 14.3 g/dl (14.0-18.0); Imm Gran Abs Auto 0.01 X10*3/uL (0.00-0.03); Imm Gran Pct Auto 0.2 % (0.0-0.4); Lymphocytes Absolute Auto 1.6 X10*3/uL (1.2-4.9); Lymphocytes Percent Auto 30.1 % (20-40); Mean Corpuscular Hemoglobin 27.7 pg (27.0-33.0); Mean Corpuscular Volume 83.8 fL (80.0-98.0); Mean Platelet Volume 9.9 fL (9.4-12.4); Monocytes Absolute Auto 0.5 X10*3/uL (0.1-1.2); Monocytes Percent Auto 8.6 % (2-11); Neutrophils Percent Auto 57.6 % (45-73); Platelet Count 269 X10*3/uL (160-400); Red Blood Count 5.17 X10*6/uL (4.60-5.80); Red Cell Distribution Width 12.6 % (11.0-16.0); White Blood Count 5.2 X10*3/uL (4.8-10.8)
[2022-01-02 10:25] LABS: Appearance Urine CLEAR; Color Urine STRAW; Glucose Urine UA NEG (NEG); Leukocyte Esterase Urine NEG (NEG); Nitrite Urine NEG (NEG); Specific Gravity - Urine 1.015 (1.005-1.025); Urine Blood NEG (NEG); Urine Ketones NEG (NEG); Urine Protein NEG (NEG-TRACE)
[2022-01-02 10:31] LABS: Prothrombin Time 11.6 SEC (9.9-13.0)
[2022-01-02 10:33] LABS: Partial Thromboplastin Time 45.1 SEC (24.1-38.0)
[2022-01-02 10:39] LABS: Alanine Aminotransferase 25 U/L (0-40); Albumin Level 4.6 g/dL (3.5-5.0); Alkaline Phosphatase 64 U/L (39-117); Anion Gap 13 (12-20); Aspartate Amino Transferase 21 U/L (5-37); Bilirubin Direct 0.5 mg/dL (0.0-0.5); Bilirubin Total 1.5 mg/dL (0.0-1.0); Blood Urea Nitrogen 11 mg/dL (9-16); Calcium 9.9 mg/dL (8.4-10.2); Carbon Dioxide 24 mmol/L (22-29); Chloride 105 mmol/L (96-108); Creatinine Clr Calc Pharmacy 172.2; Estimated Glomerular Filt Rate > 60; Glucose Random 92 mg/dL (60-115); Potassium 4.3 mmol/L (3.3-5.1); Sodium 138 mmol/L (135-145); Total Protein 7.6 g/dL (6.5-8.0)
[2022-01-02] MEDS: iohexoL 350 MG/ML 100 ML INFUS..BTL IV (11:26)
--- NOTE | 2022-01-02 13:46 | PC.NURSE ---
DR JEROME AT BEDSIDE.
--- NOTE | 2022-01-02 14:08 | P.CONGS_ITS ---
History of Present Illness Consult details Consult date: 01/02/22 Narrative: 26-year-old male who came to the ER because of what he says says was small amounts of blood per rectum this morning. He is well known to me because of perianal pain October 2021. I brought him to the OR an outpatient on 11/06/2021 because foreign I&D and I did not find any abscess collection at that time. He had a CAT scan then which I had reviewed showing what appeared to be very small amount of fluid in the perianal region. He had been doing well since then but this morning, had notices small amounts of blood seen per rectum. He has also says that he has some pain again similar to his previous episode although to a much lesser extent. He denies any fever or chills. Review of Systems Constitutional: Constitutional: Denies chills and Denies fever(s) Cardiovascular: Cardiovascular: Denies chest pain, Denies dyspnea and Denies dyspnea on exertion Respiratory: Respiratory: Denies cough, Denies dyspnea and Denies dyspnea on exertion Gastrointestinal: Gastrointestinal: Denies hematochezia and Denies change in bowel habits Genitourinary: Genitourinary: Denies hematuria and Denies difficulty urinating Musculoskeletal: Musculoskeletal: Denies back pain and Denies limited range of motion Neurologic: Denies focal weakness and Denies convulsions Psychiatric: Psychiatric: Denies depression and Denies mood swings PMFSH Past Medical History Medical History Asthma Bradycardia Perianal abscess Social History Social History Patient Tobacco Use Status: Never used Tobacco Advance Directives: No Advance Directives Information Provided: No Meds Allergies Allergy/AdvReac Type Severity Reaction Status Date / Time aspirin [ASA] Allergy Unknown BREATHING Verified 11/21/21 09:50 DIFFICULTY ibuprofen [IBUPROFEN] Allergy Unknown UNKNOWN Verified 11/21/21 09:50 Physical Exam Vital Signs: Vital Signs: Last Vital Signs Temp 98.3 F 01/02/22 08:40 Pulse 59 01/02/22 08:40 Resp 18 01/02/22 08:40 BP 136/76 01/02/22 08:40 Pulse Ox 97 01/02/22 08:40 BMI result Body Mass Index 33.0 Const: General: comfortable and no acute distress Orientation/consciousness: patient oriented x3 Neck: Neck: Yes no lymphadenopathy Resp: Auscultation: clear to auscultation bilaterally Cardio: Rhythm: regular rhythm GI: Other: Rectal exam - area of induration on the right perianal area at the verge, tender, no fluctuance, no discharge at this time, no bleeding; anoscopy deferred Palpation (GI): Soft to palpation, nontender and no guarding Neuro: General: patient oriented x3 Results Labs Result diagrams: 01/02/22 10:17 01/02/22 10:17 Labs: Abnormal lab results 01/02/22 01/02/22 Range/Units 10:17 10:17 APTT 45.1 H (24.1-38.0) SEC Total Bilirubin 1.5 H (0.0-1.0) mg/dL Short CBC 01/02/22 Range/Units 10:17 WBC 5.2 (4.8-10.8) X10*3/uL Hgb 14.3 (14.0-18.0) g/dl Hct 43.3 (42.0-52.0) % Plt Count 269 (160-400) X10*3/uL BMP 01/02/22 10:17 Sodium 138 Potassium 4.3 Chloride 105 Carbon Dioxide 24 BUN 11 Creatinine 0.80 Calcium 9.9 Liver Function 01/02/22 Range/Units 10:17 Total Bilirubin 1.5 H (0.0-1.0) mg/dL Direct Bilirubin 0.5 (0.0-0.5) mg/dL AST 21 (5-37) U/L ALT 25 (0-40) U/L Alkaline Phosphatase 64 (39-117) U/L Albumin 4.6 (3.5-5.0) g/dL Urine 01/02/22 Range/Units 10:16 Urine Color STRAW Urine Appearance CLEAR Urine pH 6.0 (5.0-8.0) Ur Specific [place] 1.015 (1.005-1.025) Urine Protein NEG (NEG-TRACE) MG/DL Urine Glucose (UA) NEG (NEG) MG/DL All other labs normal. Imaging Additional studies: Laboratory Results WBC 5.2 X10*3/uL (4.8-10.8) 01/02/22 10:17 RBC 5.17 X10*6/uL (4.60-5.80) 01/02/22 10:17 Hgb 14.3 g/dl (14.0-18.0) 01/02/22 10:17 Hct 43.3 % (42.0-52.0) 01/02/22 10:17 MCV 83.8 fL (80.0-98.0) 01/02/22 10:17 MCH 27.7 pg (27.0-33.0) 01/02/22 10:17 MCHC 33.0 g/dl (31.0-36.0) 01/02/22 10:17 RDW 12.6 % (11.0-16.0) 01/02/22 10:17 Plt Count 269 X10*3/uL (160-400) 01/02/22 10:17 MPV 9.9 fL (9.4-12.4) 01/02/22 10:17 Immature Gran % (Auto) 0.2 % (0.0-0.4) 01/02/22 10:17 Neut % (Auto) 57.6 % (45-73) 01/02/22 10:17 Lymph % (Auto) 30.1 % (20-40) 01/02/22 10:17 [place] % (Auto) 8.6 % (2-11) 01/02/22 10:17 Eos % (Auto) 2.9 % (0-4) 01/02/22 10:17 Baso % (Auto) 0.6 % (0-2) 01/02/22 10:17 Lymph # (Auto) 1.6 X10*3/uL (1.2-4.9) 01/02/22 10:17 [place] # (Auto) 0.5 X10*3/uL (0.1-1.2) 01/02/22 10:17 Eos # (Auto) 0.2 X10*3/uL (0.0-0.4) 01/02/22 10:17 Baso # (Auto) 0.0 X10*3/uL (0.0-0.2) 01/02/22 10:17 Abs Immat Gran (auto) 0.01 X10*3/uL (0.00-0.03) 01/02/22 10:17 Absolute Neuts (auto) 3.0 x10*3/uL (2.0-8.3) 01/02/22 10:17 Absolute Nucleated RBC 0.000 X10*3/uL (0.0-0.012) 01/02/22 10:17 Nucleated RBC % (auto) 0.0 /100WBC (0.0-0.2) 01/02/22 10:17 PT 11.6 SEC (9.9-13.0) 01/02/22 10:17 INR 1.0 (0.9-1.1) 01/02/22 10:17 APTT 45.1 SEC (24.1-38.0) H 01/02/22 10:17 Sodium 138 mmol/L (135-145) 01/02/22 10:17 Potassium 4.3 mmol/L (3.3-5.1) 01/02/22 10:17 Chloride 105 mmol/L (96-108) 01/02/22 10:17 Carbon Dioxide 24 mmol/L (22-29) 01/02/22 10:17 Anion Gap 13 (12-20) 01/02/22 10:17 BUN 11 mg/dL (9-16) 01/02/22 10:17 Creatinine 0.80 mg/dL (0.5-1.4) 01/02/22 10:17 Estim Creat Clear Calc 172.2 01/02/22 10:17 Estimated GFR > 60 01/02/22 10:17 Random Glucose 92 mg/dL (60-115) 01/02/22 10:17 Calcium 9.9 mg/dL (8.4-10.2) 01/02/22 10:17 Total Bilirubin 1.5 mg/dL (0.0-1.0) H 01/02/22 10:17 Direct Bilirubin 0.5 mg/dL (0.0-0.5) 01/02/22 10:17 AST 21 U/L (5-37) 01/02/22 10:17 ALT 25 U/L (0-40) 01/02/22 10:17 Alkaline Phosphatase 64 U/L (39-117) 01/02/22 10:17 Total Protein 7.6 g/dL (6.5-8.0) 01/02/22 10:17 Albumin 4.6 g/dL (3.5-5.0) 01/02/22 10:17 Urine Color STRAW 01/02/22 10:16 Urine Appearance CLEAR 01/02/22 10:16 Urine pH 6.0 (5.0-8.0) 01/02/22 10:16 Ur Specific [place] 1.015 (1.005-1.025) 01/02/22 10:16 Urine Protein NEG MG/DL (NEG-TRACE) 01/02/22 10:16 Urine Glucose (UA) NEG MG/DL (NEG) 01/02/22 10:16 Urine Ketones NEG MG/DL (NEG) 01/02/22 10:16 Urine Blood NEG (NEG) 01/02/22 10:16 Urine Nitrite NEG (NEG) 01/02/22 10:16 Ur Leukocyte Esterase NEG (NEG) 01/02/22 10:16 Impressions Abdomen/Pelvis CT 01/02/22 11:38 IMPRESSION: Resolution of the previous perineal fluid collection. There is mild skin thickening along the left gluteal cleft with no focal collection at this time. 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 Fleischner guidelines were followed. Assessment and Plan (1) Perianal abscess: Status: Acute He has another episode of perianal pain similar to before but to a lesser extent. Examinations shows the induration in the right perianal area at the anal verge with tenderness. CT scan does not reveal any significant fluid collection. However because of this induration and tenderness, I told him that it may be best to repeat his exam under anesthesia in the operating room and likely do an I and D. Explained to the technique of this procedure. I reviewed the risks including but not limited to bleeding, infections, postop pain, as well as the benefits alternatives. He understands and wants to proceed. I will schedule this for him tomorrow in the OR as an outpatient. Procedures Date of Service Date of Service: 01/02/22
--- NOTE | 2022-01-02 14:19 | PC.NURSE ---
PT SCHEDULED FOR TOMORROW FOR I AND D IN THE OR WITH DR JEROME.
== END 2022-01-02 14:28 | disposition home or self-care (01) ==
PROVIDERS: Physician Assistant; Emergency Provider Emergency Medicine Emergency Medical Services; PCP Nurse Practitioner
DX: K61.0 Anal abscess (principal); R11.0 Nausea; K59.00 Constipation, unspecified
CPT/HCPCS: 36415; 74177; 80048; 80076; 81003; 85025; 85610; 85730; 96360; 99283; 99284; 99285; Q9967

== ENCOUNTER 2022-01-03 08:28 | Day surgery (SDC) | payer MEDICAID, SELFPAY ==
[2022-01-03] VITALS (16 sets, daily range): BP systolic 105–137; BP diastolic 60–82; PULSE 51–62; RESP 16–20; TEMP 36.2–36.5; O2SAT 95–99; BMI 33.0
--- NOTE | 2022-01-03 09:44 | MHC.SHP ---
Pre-Procedural Eval Section A Date of Service: 01/03/22 The patient is an INPATIENT: No Changes since office visit: No Cold of Flu in the past 2 weeks, No New Medical Problems, No Changes in Medication and No Patient answered all questions The History & Physical has been completed within 30 days and I have reviewed it.: Yes Section B Chief Complaint: Anal abscess Allergies: Allergies Allergy/AdvReac Type Severity Reaction Status Date / Time aspirin [ASA] Allergy Unknown BREATHING Verified 11/21/21 09:50 DIFFICULTY ibuprofen [IBUPROFEN] Allergy Unknown UNKNOWN Verified 11/21/21 09:50 Plan I have reviewed the history and physical and performed a pertinent physical examination on my patient. No changes have occurred unless specified.
--- NOTE | 2022-01-03 10:04 | P.CONAN_ITS ---
[facility] Active Problems Active Problems: All Active Problems (Updated 01/02/22 @ 14:21 by AURELIO Guillen) Perianal abscess (Acute) Past Medical History Medical History Asthma Bradycardia Perianal abscess Family History Family history of problems with anesthesia: No Surgical History History of Problems with Anesthesia: No Social History Social History Patient Tobacco Use Status: Never used Tobacco Use of substances other than those prescribed or required for medical reasons: No Have you been hit, kicked, punched, or otherwise hurt by someone within the past year? If so, by whom?: No Are you DNR?: No Advance Directives: No Advance Directives Information Provided: Yes Meds Allergies Allergy/AdvReac Type Severity Reaction Status Date / Time aspirin [ASA] Allergy Unknown BREATHING Verified 11/21/21 09:50 DIFFICULTY ibuprofen [IBUPROFEN] Allergy Unknown UNKNOWN Verified 11/21/21 09:50 Active Medications: Current Medications Cefotetan Disodium 2 gm/ (Sodium Chloride) 50 mls @ 100 mls/hr IV PREOP ONE Stop: 01/03/22 10:12 Exam Exam Date and Time: January 03, 2022 1004 Height,Weight and Vital Signs: Height 5 ft 10 in Weight 104.326 kg Last Vital Signs Temp 97.3 F 01/03/22 09:00 Pulse 60 01/03/22 09:00 Resp 18 01/03/22 09:00 BP 125/69 01/03/22 09:00 Pulse Ox 97 01/03/22 09:00 Airway Mallampati Class: I TM Dist: >3cm Neck ROM: Full Heart: ok Lungs: ok Assessment and Plan Final Anesthetic Review Family History of Problems with Anesthesia: No History of Problems with Anesthesia: No NPO: Yes ASA Class: II Final Preanesthetic Review: No Changes in Pt Med Stat, Meds/Allgs Chart Rev iewed, Consent Obtained/Reviewed and Anes Risks/Benef Reviewed Patient Risk: Intermediate Procedure Risk: Intermediate Anesthetic Plan Anesthetic Plan: GA and Agree w/ Assess. and Plan Disposition: Standard PACU
[2022-01-03] MEDS: Lactated Ringers 1,000 ML 100 ML IVCONT (10:15)
--- NOTE | 2022-01-03 10:45 | P.OP_ITS ---
Operative Note Operative Note Date of Service: 01/03/22 Narrative: Preop diagnosis: Perianal abscess Postop diagnosis: The same Procedure: Exam under anesthesia, incision drainage, perianal abscess Surgeon: Jordan Jerome MD The patient is a 26-year-old male who went to the ER yesterday because of perianal pain. He had a similar issue last October,. I had done an exam under anesthesia and did not see any obvious abscess. He had a CAT scan yesterday which did not reveal any obvious fluid collection in the anus. However, he did have what appeared to be an induration on the right perianal area at the verge which was tender. This was suggestive of an abscess. I therefore told him it would be best to proceed with an I and D in the OR. He understood the technique of the procedure as well as the risks, benefits, and alternatives He did state that he seemed to have with significant drainage overnight He was brought to the operating room and placed in prone abhi-knife position under general anesthesia via laryngeal mask airway. Buttocks were retracted wi th wide tape laterally. The perianal area was prepped draped usual sterile fashion. A surgical time-out was done. The patient received Cefotan 2 g preoperatively. Examination of the anal orifice did not reveal any obvious sinus or any fistulous opening. Furthermore, the induration seen yesterday could not be visualized. The seemed to have apparently drained A certain abuse Lombardi retractor. I examined the anal canal circumferentially. Again, there was no evidence of any internal fistulous opening. I palpated the entire anal circumference with my index finger and I could not feel any induration, bogginess or any fluctuance. Since there was a possibility of an intersphincteric abscess with this presentation, I proceeded to make a short incision on the area above the intersphincteric groove on the right where the previous induration was using blade 15. I then proceeded blunt dissection with a hemostat into the intersphincteric space as well as the submucosal space on this area. I did not see any obvious drainage or any purulent fluid . I left the small I&D site open. I then re-examined the entire anal canal and there were no identifiable fistulous openings I therefore infiltrated the perianal area with Marcaine 0.5% for postop analgesia and the procedure was completed The patient tolerated the procedure well. There were no complications noted. He was extubated without difficulty and transferred to recovery room with stable vital signs.
[2022-01-03] MEDS: Acetaminophen 325 MG TABLET 650 MG PO (11:20)
[2022-01-03] MEDS: oxyCODONE HCl Immed Release 5 MG TABLET 10 MG PO (11:20)
[2022-01-03] MEDS: fentaNYL citrate/PF 100 MCG/2 ML VIAL 50 MCG IVPUSH ×2 (11:46→11:51)
[2022-01-03] MEDS: ondansetron HCL 4 MG/2 ML VIAL IVPUSH (13:02)
--- NOTE | 2022-01-03 14:29 | PC.NURSE ---
pt with attempt to void x 3 ambulations- unable s/p 2 liters ivf, dr. frankel updated. instructed to go to ED by 7pm if he does not void.
--- NOTE | 2022-01-03 14:45 | PC.NURSE ---
2:35 p.m. pt voided in bathroom. over to discharge area via wheelchair.
== END 2022-01-03 15:10 | disposition home or self-care (01) ==
PROVIDERS: PCP Nurse Practitioner; Visit Provider Surgery
PROC: (CPT 46050; principal; 2022-01-03 12:20)
DX: K61.0 Anal abscess (principal); K62.89 Other specified diseases of anus and rectum; J45.909 Unspecified asthma, uncomplicated; R00.1 Bradycardia, unspecified; Z88.8 Allergy status to other drugs, medicaments and biological substances
CPT/HCPCS: 46050; J2405; J3010

== ENCOUNTER → 2022-01-23 09:56 | Outpatient (BNVA) | payer MEDICAID, SELFPAY | PROVIDERS: PCP Nurse Practitioner; Visit Provider Surgery | DX: Z48.817 Encounter for surgical aftercare following surgery on the skin and subcutaneous tissue (principal); Z87.2 Personal history of diseases of the skin and subcutaneous tissue | CPT/HCPCS: 99212 ==

== ENCOUNTER 2022-01-31 15:59 | Outpatient (REF) | payer MEDICAID, SELFPAY ==
--- NOTE | ~2022-01-31 | MR_ITS ---
EXAMINATION: MR PELVIS WITHOUT AND WITH CONTRAST CLINICAL INFORMATION: Anal abscess. COMPARISON: Previous CT of the abdomen and pelvis 01/02/2022. TECHNIQUE: Sagittal, axial and coronal sequences through the pelvis with and without contrast. The patient received 10 mL intravenous Gadavist contrast. FINDINGS: There is soft tissue thickening along the left posterior venous from the 5-6 o'clock position. This is low signal on T1-weighted sequences. This is high signal on T2-weighted sequences. This demonstrates enhancement. Enhancement extends to the wall of the anus, for example axial image 31 postcontrast. This measures 5 x 12 mm in transverse and AP dimension. This measures 1.5 cm in longitudinal dimension. The visualized bowel is unremarkable. Bladder and prostate gland are unremarkable. No ascites is seen. There is shotty bilateral inguinal lymphadenopathy. No hernia is seen. There may be a left-sided IVC. Bony structures are normal. MR/MR pelvis wo/w con IMPRESSION: Abnormal signal and enhancement in the left perianal region from the 5-6 o'clock position measuring 5 x 12 x 15 mm in transverse, AP and longitudinal dimension. This is most suggestive of a left perianal abscess.
== END 2022-01-31 16:00 | disposition home or self-care (01) ==
LOC: HO.MRI 15:59
PROVIDERS: Visit Provider Surgery
DX: K61.0 Anal abscess (principal)
CPT/HCPCS: 72197; A9585

== ENCOUNTER → 2022-02-05 09:29 | Outpatient (BNVA) | payer MEDICAID, SELFPAY | PROVIDERS: PCP Nurse Practitioner; Referring Provider Nurse Practitioner; Visit Provider Surgery | DX: K61.0 Anal abscess (principal) | CPT/HCPCS: 99212 ==

== ENCOUNTER 2022-02-14 11:58 | Day surgery (SDC) | payer MEDICAID, SELFPAY ==
--- NOTE | 2022-02-12 13:23 | P.CONAN_ITS ---
Documented by User: Sherlyn Fermin NP 02/12/22 13:25 HPI - Anesthesia Eval Consult details Narrative: 26yo M for EUA, I&D Mayte-anal Abscess,poss seton placement s/p abcess I&D 12/2021 with GA-LMA 4 prn opioids PMFSH Active Problems Active Problems: All Active Problems (Updated 01/02/22 @ 14:21 by AURELIO Guillen) Perianal abscess (Acute) Past Medical History Medical History Asthma Bradycardia Perianal abscess Family History Family history of problems with anesthesia: No Surgical History History of Problems with Anesthesia: No Social History Social History Patient Tobacco Use Status: Never used Tobacco Use of substances other than those prescribed or required for medical reasons: No Are you DNR?: No Advance Directives: No Advance Directives Information Provided: Yes Meds Allergies Allergy/AdvReac Type Severity Reaction Status Date / Time aspirin [ASA] Allergy Unknown BREATHING Verified 02/14/22 12:10 DIFFICULTY Home Medications Medication Instructions Recorded Confirmed Last Taken Type albuterol sulfate 90 mcg/actuation 2 puff PO QID PRN 02/14/22 02/14/22 02/14/22 History aerosol inhaler (ProAir HFA) Exam Exam Date and Time: February 12, 2022 1323 Pertinent Lab Results Pertinent Lab Results: Laboratory Tests 01/02/22 01/02/22 10:17 10:17 WBC 5.2 Hgb 14.3 Hct 43.3 Plt Count 269 Sodium 138 Potassium 4.3 Chloride 105 Carbon Dioxide 24 BUN 11 Creatinine 0.80 Assessment and Plan Assessment Anesthesia Assessment: Chart Reviewed Final Anesthetic Review Family History of Problems with Anesthesia: No History of Problems with Anesthesia: No Documented by User: Contreras Parson MD 02/14/22 12:48 HPI - Anesthesia Eval Consult details Narrative: 26yo M for EUA, I&D Mayte-anal Abscess,poss seton placement s/p abcess I&D 12/2021 with GA-LMA 4 prn opioids Patient having cough since last week , saw an physician at [facility] , Covid was negative . The physician prescribed steroids and instructed the patient to use inhaler more frequently . Since taking these measures , patient s cough has improved . Patient denies any fever , sore throat or runny nose . The case was discussed with . [facility] Past Medical History Medical History Asthma Bradycardia Perianal abscess Functional capacity: independent ambulation Social History Social History Patient Tobacco Use Status: Never used Tobacco Use of substances other than those prescribed or required for medical reasons: No Are you DNR?: No Advance Directives: No Advance Directives Information Provided: Yes Meds Allergies Allergy/AdvReac Type Severity Reaction Status Date / Time aspirin [ASA] Allergy Unknown BREATHING Verified 02/14/22 12:10 DIFFICULTY Home Medications Medication Instructions Recorded Confirmed Last Taken Type albuterol sulfate 90 mcg/actuation 2 puff PO QID PRN 02/14/22 02/14/22 02/14/22 History aerosol inhaler (ProAir HFA) Exam Airway Mallampati Class: III TM Dist: >3cm Neck ROM: Full Loose/Missing/Broken Teeth: Yes Heart: S1, S2 Lungs: clear breath sounds b/l Assessment and Plan Assessment Anesthesia Assessment: Anesthesia Plan Discussed Final Anesthetic Review NPO: Yes ASA Class: II and Emergency Final Preanesthetic Review: Meds/Allgs Chart Reviewed, Consent Obtained/Reviewed and Anes Risks/Benef Reviewed Patient Risk: Intermediate Procedure Risk: Intermediate Anesthetic Plan Anesthetic Plan: GA Disposition: Standard PACU
[2022-02-14] VITALS (11 sets, daily range): BP systolic 140–161; BP diastolic 70–96; PULSE 60–69; RESP 16; TEMP 37.1; O2SAT 98–99; BMI 34.8
[2022-02-14] MEDS: Lactated Ringers 1,000 ML 100 ML IVCONT (12:57)
--- NOTE | 2022-02-14 13:22 | MHC.SHP ---
Pre-Procedural Eval Section A Date of Service: 02/14/22 The patient is an INPATIENT: No Changes since office visit: No Cold of Flu in the past 2 weeks, No New Medical Problems, No Changes in Medication and No Patient answered all questions The History & Physical has been completed within 30 days and I have reviewed it.: Yes Section B Chief Complaint: Anal abscess Allergies: Allergies Allergy/AdvReac Type Severity Reaction Status Date / Time aspirin [ASA] Allergy Unknown BREATHING Verified 02/14/22 12:10 DIFFICULTY Plan I have reviewed the history and physical and performed a pertinent physical examination on my patient. No changes have occurred unless specified.
--- NOTE | 2022-02-14 14:41 | W.PM.OPN ---
Operative Note Operative Note Date of Service: 02/14/22 Narrative: Preop diagnosis: Perianal abscess on MRI Postop diagnosis: Perianal abscess on MRI Procedure: Exam under anesthesia, I and D of perianal abscess Surgeon: Jordan Jerome MD The patient is a 26-year-old male who has had perianal pain and tenderness. I had taken him twice to the operating room in the past for I and D and there was actually no definite abscess but was identified I therefore sent him for MRI. This was reviewed with the radiologist. There was suggestion of a small 1 cm abscess in the left side posteriorly. This seemed to be intersphincteric. I therefore Explained to the patient that in view of his recurrent pain and swelling, who will bring him back to the operating room to open up this area. He understood the technique of this procedure and he was aware of the risks, benefits, and alternatives He was brought to the operating room. He was placed in prone abhi-knife position under general anesthesia via laryngeal mask airway. The buttocks were retracted with wide tape laterally the the perianal area was prepped and draped in the usual sterile fashion. I infiltrated the perianal area with lidocaine 1% Examination of the anal orifice he did not reveal any obvious external sinus. There was note of a little tear in the anal verge on the skin but this was likely due to retraction more than a really sharp I inserted abuse Lombardi retractor. I examined the anal cancer come friends carefully. He did have some hemorrhoidal tissue, left and right side a mix of internal external. I did not any induration or obvious to once in the anal canal. I therefore reviewed the MRI images intraoperatively with the radiologist. Again, he pinpointed the collection as what appeared to be the intersphincteric area on the left ear. I therefore made a small incision on this area just above the verge using blade 15. I extended this bluntly with a hemostat to enter the intersphincteric space. There was no obvious pus in this area The counter incision anteriorly also the left side. Again I entered the intersphincteric space and probed this there was no fluid collection or abscess cavity. I also examined the sub mucosal space to rule out a submucosal abscess. I did not really see a definite collection in the submucosal space either. There was no induration even on the right side I therefore observed for hemostasis. I controlled oozing areas on the I&D site with a [id number] chromic 3-0 stitch. I cauterized the small tear in the posterior midline on the skin . I infiltrated the Perianal area with Marcaine 0.5% for postop analgesia. I then observed further was stasis. Once hemostasis was confirmed, a placed a rolled Gelfoam into the anal canal. The procedure was then completed. The patient tolerated procedure well. There were no complication noted I will see him the office for follow-up.
[2022-02-14] MEDS: oxyCODONE HCl Immed Release 5 MG TABLET PO (15:09)
[2022-02-14] MEDS: Acetaminophen 325 MG TABLET 650 MG PO (15:09)
[2022-02-14] MEDS: fentaNYL citrate/PF 100 MCG/2 ML VIAL 25 MCG IVPUSH ×2 (15:14→15:54)
--- NOTE | 2022-02-14 17:07 | PC.NURSE ---
oob ambulated to bathroom to voidx1. steady gait. no complaints of nausea. returned to stretcher dressed at bedside. eating crackers and using cellphone. await discharge to home
== END 2022-02-14 17:29 | disposition home or self-care (01) ==
PROVIDERS: PCP Nurse Practitioner; Visit Provider Surgery
PROC: (CPT 46050; principal; 2022-02-14 13:50)
DX: K61.0 Anal abscess (principal); K62.89 Other specified diseases of anus and rectum; K64.8 Other hemorrhoids; K64.4 Residual hemorrhoidal skin tags; Z88.8 Allergy status to other drugs, medicaments and biological substances
CPT/HCPCS: 46050; J2250; J3010

== ENCOUNTER → 2022-02-28 14:19 | Outpatient (BNVA) | payer MEDICAID, SELFPAY | PROVIDERS: PCP Nurse Practitioner; Referring Provider Nurse Practitioner; Visit Provider Surgery | DX: Z13.89 Encounter for screening for other disorder (principal) ==

== ENCOUNTER → 2022-03-11 13:59 | Outpatient (BNVA) | payer MEDICAID, SELFPAY | PROVIDERS: PCP Nurse Practitioner; Visit Provider Dietitian, Registered | DX: E66.9 Obesity, unspecified (principal); Z68.32 Body mass index [BMI] 32.0-32.9, adult; Z71.3 Dietary counseling and surveillance | CPT/HCPCS: 97802 ==

== ENCOUNTER → 2022-05-26 15:12 | Outpatient (BNVA) | payer MEDICAID, SELFPAY | PROVIDERS: PCP Nurse Practitioner; Referring Provider Nurse Practitioner; Visit Provider Surgery | DX: K61.0 Anal abscess (principal) | CPT/HCPCS: 99212 ==

== ENCOUNTER → 2022-07-17 09:36 | Outpatient (BNVA) | payer MEDICAID, SELFPAY | PROVIDERS: PCP Nurse Practitioner; Visit Provider Surgery | DX: K61.0 Anal abscess (principal) | CPT/HCPCS: 99212 ==

== ENCOUNTER 2022-08-09 09:53 | Emergency (ER) | payer MEDICAID, SELFPAY ==
--- NOTE | ~2022-08-09 | XR_ITS ---
EXAMINATION: CR CHEST CLINICAL INFORMATION: Cough and shortness of breath. COMPARISON: Chest x-ray dated 08/22/2017. TECHNIQUE: 2 views of the chest were obtained. FINDINGS: The cardiomediastinal silhouette is within normal limits in size. Lungs bilaterally are symmetrically expanded. There is mild diffuse thickening of the central airways, suggesting reactive airways disease or bronchitis. No focal consolidation, effusion or pneumothorax is seen. Bony structures are unremarkable. XR/XR chest 2V IMPRESSION: Findings are suggestive of reactive airways disease or bronchitis. No focal pneumonia.
[2022-08-09 10:03] VITALS: BP 127/59; PULSE 59; RESP 16; TEMP 36.4; O2SAT 95; BMI 34.0
--- NOTE | 2022-08-09 10:27 | ECG_ITS ---
Test Reason : SOB Blood Pressure : / mmHG Vent. Rate : 060 BPM Atrial Rate : 060 BPM P-R Int : 144 ms QRS Dur : 112 ms QT Int : 402 ms P-R-T Axes : 020 029 022 degrees QTc Int : 402 ms Normal sinus rhythm Intra-ventricular conduction delay Otherwise normal ECG No previous ECGs available Referred By: Jessica Britt Electronically Signed By:JERED HENDERSON MD
--- NOTE | 2022-08-09 10:41 | ED.ASTHMA ---
HPI - Asthma General Chief Complaint: Asthma Stated Complaint: sob asthma chest tightness Time Seen by Provider: 08/09/22 10:13 Source: patient Mode of arrival: ambulatory History of Present Illness HPI Narrative: 26-year-old male with past medical history of asthma, presenting to the ED complaining of dry cough, chest tightness, exertional SOB x 3 days. Non compliant with inhalers due to being , denies recent steroids. Reports pain worse with deep breathing and movement. Admits recently traveled to [place] 2 weeks ago. Denies cigarette smoking, history of clots, pedal edema, calf pain, fever/chills MD complaint: asthma attack and shortness of breath Onset (ago): day(s) Related Data Home Medications Medication Instructions Recorded Confirmed albuterol sulfate 90 mcg/actuation 2 puff PO QID PRN Wheezing 02/14/22 07/17/22 aerosol inhaler (ProAir HFA) Previous Rx's Medication Instructions Recorded docusate sodium 100 mg capsule 100 mg PO BID #60 caps 11/07/21 (Colace) albuterol sulfate 90 mcg/actuation 2 puff inhalation Q4-6H PRN 08/09/22 aerosol inhaler shortness of breath or wheezing #6.7 grams prednisone 20 mg tablet 40 mg PO DAILY 5 days #10 tabs 08/09/22 Allergies Allergy/AdvReac Type Severity Reaction Status Date / Time aspirin [ASA] Allergy Unknown BREATHING Verified 07/17/22 09:42 DIFFICULTY Review of Systems Review of Systems: Constitutional: No Fever, No Chills, No Fatigue, No Malaise ENT/Mouth: No Ear Pain, No Nasal Congestion, No sore throat, No Rhinorrhea, No Swallowing Difficulty Eyes: No Eye Pain, No Swelling, No Redness, No Vision Changes Cardiovascular: + Chest Pain, + SOB, No Dyspnea on Exertion, No Orthopnea, No Edema, No Palpitations Respiratory: + Cough, No Sputum, + Wheezing, No Dyspnea Gastrointestinal: No Nausea, No Vomiting, No Diarrhea, No Constipation, No Abdominal pain Genitourinary: No Dysuria, No Urinary Frequency, No Hematuria, No Flank Pain Musculoskeletal: No joint pain, No Myalgias, No Joint Swelling Skin: No Skin Lesions, No rash Neuro: No Weakness, No Dizziness, No Headache Yes all other systems are reviewed and are negative Constitutional: Constitutional: Reports as per HPI [facility] Past Medical History Attestation statement: The following information was validated with the patient. Medical History Asthma Bradycardia Perianal abscess Family History Family History Mother Cervical cancer Diabetes Heart problem Father Arthritis Prostate cancer Social History Social History Alcohol intake: never Patient Tobacco Use Status: Never used Tobacco Advance Directives: No Advance Directives Information Provided: No Physical Exam Vital Signs: Vital Signs: Last Vital Signs Temp 97.5 F 08/09/22 10:03 Pulse 73 08/09/22 10:47 Resp 14 08/09/22 10:47 BP 127/59 L 08/09/22 10:03 Pulse Ox 95 08/09/22 10:03 O2 Del Method 08/09/22 10:03 BMI result Body Mass Index 34.0 Const: General: cooperative, healthy appearing and no acute distress Orientation/consciousness: patient oriented x3 Limitations: no limitations HEENT: Head: Yes normal to inspection and Yes atraumatic Ears: hearing grossly normal bilaterally General nose exam: Normal external nose present Face and sinus: Yes normal facial exam Throat: Yes posterior oropharynx normal, Yes tonsils normal and Yes uvula midline Eyes: General: appearance normal, both eyes and all related structures EOM: EOMs intact bilaterally Neck: Neck: Yes normal visual inspection and Yes no meningeal signs Resp: Effort & Inspection: normal respiratory effort and no respiratory distress Auscultation: clear to auscultation bilaterally, no crackles, no rales, no rhonchi and no wheezes Cardio: Rate: regular rate Heart sounds: S1 normal heart sound present and S2 normal heart sound present GI: Inspection: Yes normal to inspection : General: Yes no CVA tenderness Back/Spine/Pelvis: Back: no CVA tenderness Skin: Rashes: no rashes Wounds: no wounds Neuro: General: patient oriented x3, tone normal and no meningeal signs Gait exam (Neuro): Normal gait present Extrem: General: Yes normal to inspection, Yes no pedal edema and Yes no calf tenderness Course Course Course Narrative: -1142--leukocytosis. D-dimer WNL, PE unlikely -labs otherwise reassuring, troponin negative -COVID-19 and influenza negative -1255--XR chest 2V IMPRESSION: Findings are suggestive of reactive airways disease or bronchitis. No focal pneumonia. > Results discussed with patient including worrisome signs and symptoms and strict return precautions, and when to return to the emergency department. They verbalized understanding and feel safe for discharge at this time. Medications Administered Discontinued Medications Generic Name Dose Route Start Last Admin Trade Name Freq PRN Reason Stop Dose Admin Albuterol/Ipratropium 3 ml 08/09/22 10:27 08/09/22 10:46 Albuterol/Iprat 2.5/0.5mg 3 Ml Ampul.Neb INHALE 08/09/22 10:28 3 ml ONCE ONE Administration MDM - Asthma MDM Narrative Medical decision making narrative: 26-year-old male with past medical history of asthma, presenting to the ED complaining of dry cough, chest tightness, exertional SOB x 3 days. On exam VSS, NAD, well appearing, lungs CTA, no pedal edema/calf tenderness. Concern for asthma exacerbation vs viral illness vs pneumonia vs pulmonary embolism. Lower suspicion for ACS Plan: EKG, labs, CXR, COVID-19/influenza testing, DuoNeb, reassess Differential Diagnosis Differential diagnosis: Likely Acute exacerbation, PE and Pneumonia Medical Records Attestation: I reviewed the patient's medical records. Lab Data Attestation: I reviewed the patient's lab results. Result diagrams: 08/09/22 11:06 08/09/22 11:06 Labs: Lab Results 08/09/22 08/09/22 08/09/22 Range/Units 11:06 11:06 11:06 WBC 6.2 (4.8-10.8) X10*3/uL RBC 5.20 (4.60-5.80) X10*6/uL Hgb 14.7 (14.0-18.0) g/dl Hct 43.7 (42.0-52.0) % MCV 84.0 (80.0-98.0) fL MCH 28.3 (27.0-33.0) pg MCHC 33.6 (31.0-36.0) g/dl RDW 12.3 (11.0-16.0) % Plt Count 225 (160-400) X10*3/uL MPV 9.9 (9.4-12.4) fL Immature Gran % (Auto) 0.2 (0.0-0.4) % Neut % (Auto) 41.4 L (45-73) % Lymph % (Auto) 45.2 H (20-40) % [place] % (Auto) 9.3 (2-11) % Eos % (Auto) 3.1 (0-4) % Baso % (Auto) 0.8 (0-2) % Lymph # (Auto) 2.8 (1.2-4.9) X10*3/uL [place] # (Auto) 0.6 (0.1-1.2) X10*3/uL Eos # (Auto) 0.2 (0.0-0.4) X10*3/uL Baso # (Auto) 0.1 (0.0-0.2) X10*3/uL Abs Immat Gran (auto) 0.01 (0.00-0.03) X10*3/uL Absolute Neuts (auto) 2.6 (2.0-8.3) x10*3/uL Absolute Nucleated RBC 0.000 (0.0-0.012) X10*3/uL Nucleated RBC % (auto) 0.0 (0.0-0.2) /100WBC D-Dimer High Sensitivty 219 NG/ML Sodium 141 (135-145) mmol/L Potassium 3.8 (3.3-5.1) mmol/L Chloride 104 (96-108) mmol/L Carbon Dioxide 23 (22-29) mmol/L Anion Gap 18 (12-20) BUN 10 (9-16) mg/dL Creatinine 0.79 (0.5-1.4) mg/dL Estim Creat Clear Calc 171.6 Estimated GFR > 60 Random Glucose 100 (60-115) mg/dL Calcium 9.5 (8.4-10.2) mg/dL Troponin I High Sens (<3.5-35.0) ng/L B-Natriuretic Peptide (<100) pg/mL COVID-19 (KAYE) (Negative) COVID-19 Clin Com Influenza Type A (RIVER) (Negative) Influenza Type B (RIVER) (Negative) Influenza A & B Note 08/09/22 08/09/22 08/09/22 Range/Units 11:06 11:06 11:06 WBC (4.8-10.8) X10*3/uL RBC (4.60-5.80) X10*6/uL Hgb (14.0-18.0) g/dl Hct (42.0-52.0) % MCV (80.0-98.0) fL MCH (27.0-33.0) pg MCHC (31.0-36.0) g/dl RDW (11.0-16.0) % Plt Count (160-400) X10*3/uL MPV (9.4-12.4) fL Immature Gran % (Auto) (0.0-0.4) % Neut % (Auto) (45-73) % Lymph % (Auto) (20-40) % [place] % (Auto) (2-11) % Eos % (Auto) (0-4) % Baso % (Auto) (0-2) % Lymph # (Auto) (1.2-4.9) X10*3/uL [place] # (Auto) (0.1-1.2) X10*3/uL Eos # (Auto) (0.0-0.4) X10*3/uL Baso # (Auto) (0.0-0.2) X10*3/uL Abs Immat Gran (auto) (0.00-0.03) X10*3/uL Absolute Neuts (auto) (2.0-8.3) x10*3/uL Absolute Nucleated RBC (0.0-0.012) X10*3/uL Nucleated RBC % (auto) (0.0-0.2) /100WBC D-Dimer High Sensitivty NG/ML Sodium (135-145) mmol/L Potassium (3.3-5.1) mmol/L Chloride (96-108) mmol/L Carbon Dioxide (22-29) mmol/L Anion Gap (12-20) BUN (9-16) mg/dL Creatinine (0.5-1.4) mg/dL Estim Creat Clear Calc Estimated GFR Random Glucose (60-115) mg/dL Calcium (8.4-10.2) mg/dL Troponin I High Sens < 3.5 (<3.5-35.0) ng/L B-Natriuretic Peptide < 10 (<100) pg/mL COVID-19 ([facility]AYE) (Negative) COVID-19 Clin Com Influenza Type A (RIVER) Negative (Negative) Influenza Type B (RIVER) Negative (Negative) Influenza A & B Note See Note 08/09/22 Range/Units 11:06 WBC (4.8-10.8) X10*3/uL RBC (4.60-5.80) X10*6/uL Hgb (14.0-18.0) g/dl Hct (42.0-52.0) % MCV (80.0-98.0) fL MCH (27.0-33.0) pg MCHC (31.0-36.0) g/dl RDW (11.0-16.0) % Plt Count (160-400) X10*3/uL MPV (9.4-12.4) fL Immature Gran % (Auto) (0.0-0.4) % Neut % (Auto) (45-73) % Lymph % (Auto) (20-40) % [place] % (Auto) (2-11) % Eos % (Auto) (0-4) % Baso % (Auto) (0-2) % Lymph # (Auto) (1.2-4.9) X10*3/uL [place] # (Auto) (0.1-1.2) X10*3/uL Eos # (Auto) (0.0-0.4) X10*3/uL Baso # (Auto) (0.0-0.2) X10*3/uL Abs Immat Gran (auto) (0.00-0.03) X10*3/uL Absolute Neuts (auto) (2.0-8.3) x10*3/uL Absolute Nucleated RBC (0.0-0.012) X10*3/uL Nucleated RBC % (auto) (0.0-0.2) /100WBC D-Dimer High Sensitivty NG/ML Sodium (135-145) mmol/L Potassium (3.3-5.1) mmol/L Chloride (96-108) mmol/L Carbon Dioxide (22-29) mmol/L Anion Gap (12-20) BUN (9-16) mg/dL Creatinine (0.5-1.4) mg/dL Estim Creat Clear Calc Estimated GFR Random Glucose (60-115) mg/dL Calcium (8.4-10.2) mg/dL Troponin I High Sens (<3.5-35.0) ng/L B-Natriuretic Peptide (<100) pg/mL COVID-19 (KAYE) Negative (Negative) COVID-19 Clin Com See Note Influenza Type A ([facility]) (Negative) Influenza Type B ([facility]) (Negative) Influenza A & B Note ECG Data Attestation: I personally reviewed and interpreted this ECG as follows: ECG interpretation date: 08/09/22 ECG interpretation time: 10:34 Interpretation: EKG normal sinus rhythm at a rate of 60. VT interval 144. QTC 402. No STEMI. Nonischemic Discharge Plan Discharge Clinical Impression: Asthma exacerbation Patient Disposition: Home, Self-Care Instructions: Asthma (ED) Additional Instructions: You tested negative for COVID-19 and the flu. Her blood work was reassuring. Her x-ray shows evidence of reactive airway disease/asthma Continue using inhaler at home. Start taking prednisone which is an oral steroid Is have close follow-up with your doctor If symptoms persist or worsen, have constant worsening shortness of breath, chest pain, or fever return to the emergency department Prescriptions: New prednisone 20 mg tablet 40 mg PO DAILY 5 Days Qty: 10 0RF albuterol sulfate 90 mcg/actuation HFA aerosol inhaler 2 puff inhalation Q4-6H PRN (Reason: shortness of breath or wheezing) Qty: 6.7 0RF No Action albuterol sulfate [ProAir HFA] 90 mcg/actuation HFA aerosol inhaler 2 puff PO QID PRN (Reason: Wheezing) docusate sodium [Colace] 100 mg capsule 100 mg PO BID Qty: 60 2RF Referrals: Mya Araujo [Primary Care Provider] - 3 days
[2022-08-09] MEDS: Albuterol/Iprat 2.5/0.5MG 3 ML AMPUL.NEB INHALE (10:46)
[2022-08-09 10:47] VITALS: PULSE 73; RESP 14; O2SAT 98
[2022-08-09 11:13] LABS: MANUAL DIFF FLAG NO
[2022-08-09 11:16] LABS: Basophils Absolute Auto 0.1 X10*3/uL (0.0-0.2); Basophils Percent Auto 0.8 % (0-2); Eosinophils Absolute Auto 0.2 X10*3/uL (0.0-0.4); Eosinophils Percent Auto 3.1 % (0-4); Hematocrit 43.7 % (42.0-52.0); Hemoglobin 14.7 g/dl (14.0-18.0); Imm Gran Abs Auto 0.01 X10*3/uL (0.00-0.03); Imm Gran Pct Auto 0.2 % (0.0-0.4); Lymphocytes Absolute Auto 2.8 X10*3/uL (1.2-4.9); Lymphocytes Percent Auto 45.2 % (20-40); Mean Corpuscular HGB Conc 33.6 g/dl (31.0-36.0); Mean Corpuscular Hemoglobin 28.3 pg (27.0-33.0); Mean Platelet Volume 9.9 fL (9.4-12.4); Monocytes Absolute Auto 0.6 X10*3/uL (0.1-1.2); Monocytes Percent Auto 9.3 % (2-11); Neutrophils Absolute Auto 2.6 x10*3/uL (2.0-8.3); Neutrophils Percent Auto 41.4 % (45-73); Platelet Count 225 X10*3/uL (160-400); Red Cell Distribution Width 12.3 % (11.0-16.0); White Blood Count 6.2 X10*3/uL (4.8-10.8)
[2022-08-09 11:21] LABS: D Dimer High Sensitivity 219 NG/ML
[2022-08-09 11:27] LABS: Anion Gap 18 (12-20); Blood Urea Nitrogen 10 mg/dL (9-16); Calcium 9.5 mg/dL (8.4-10.2); Carbon Dioxide 23 mmol/L (22-29); Chloride 104 mmol/L (96-108); Creatinine Clr Calc Pharmacy 171.6; Estimated Glomerular Filt Rate > 60; Glucose Random 100 mg/dL (60-115); Potassium 3.8 mmol/L (3.3-5.1); Sodium 141 mmol/L (135-145)
[2022-08-09 11:29] LABS: COVID-19 Test Negative (Negative); IDNOW Serial# 55D5AD1C
[2022-08-09 11:35] LABS: Troponin-I High Sensitivity < 3.5 ng/L (<3.5-35.0)
[2022-08-09 11:36] LABS: B Type Natriuretic Peptide < 10 pg/mL (<100)
[2022-08-09 11:52] LABS: IDNOW Serial# 16C4AD1C; Influenza A Negative (Negative); Influenza B2 Negative (Negative)
== END 2022-08-09 13:23 | disposition home or self-care (01) ==
PROVIDERS: Physician Assistant; Emergency Provider Emergency Medicine; PCP Nurse Practitioner
DX: J45.901 Unspecified asthma with (acute) exacerbation (principal); Z20.822 Contact with and (suspected) exposure to COVID-19; R06.02 Shortness of breath
CPT/HCPCS: 71046; 80048; 83880; 84484; 85025; 85379; 87502; 87635; 93005; 94640; 99284

== ENCOUNTER 2022-09-18 12:37 | Outpatient (REF) | payer MEDICAID, SELFPAY ==
[2022-09-18 15:38] LABS: Blood Urea Nitrogen 16 mg/dL (9-16); Estimated Glomerular Filt Rate > 60
== END 2022-09-18 12:38 | disposition home or self-care (01) ==
LOC: HO.LAB 12:37
PROVIDERS: PCP Nurse Practitioner; Visit Provider Surgery
DX: R19.8 Other specified symptoms and signs involving the digestive system and abdomen (principal)
CPT/HCPCS: 36415; 82565; 84520; 99212

== ENCOUNTER 2022-10-03 10:34 | Outpatient (REF) | payer MEDICAID, SELFPAY ==
--- NOTE | ~2022-10-03 | CT_ITS ---
EXAMINATION: CT PELVIS WITH CONTRAST CLINICAL INFORMATION: Other specified symptoms and signs involving the congested cyst COMPARISON: MRI 01/31/2022 TECHNIQUE: Helical scanning was performed with submillimeter collimation through the pelvis with the use of oral contrast and during bolus intravenous injection of 85 mL of Omnipaque 350 intravenous contrast. Sagittal and coronal multiplanar 2-D reconstructions were obtained. This CT examination was performed using dose optimization techniques as appropriate, variously including the following: *Automated exposure control *Adjustment of mA and/or kV according to patient size (this includes techniques or standardized protocols for targeted exams where dose is matched to indication/reason for exam; i.e. extremities or head) *Use of iterative reconstruction technique DLP: 743 mGy-cm FINDINGS: Visualized small bowel and colon are nondilated. Scattered colonic diverticulosis. Normal appendix. No ascites. No lymphadenopathy. Prostate, seminal vesicles, and urinary bladder are normal. Soft tissue contrast on CT has limited sensitivity compared to the prior MRI examination. 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 Otherwise, no ischiorectal or perirectal inflammatory changes seen. 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 Its possible that it is improved from the prior MRI although it could be less well seen for technical reasons rather than a true clinical improvement.
[2022-10-03] MEDS: iohexoL 350 MG/ML 100 ML INFUS..BTL IV (12:09)
== END 2022-10-03 10:35 | disposition home or self-care (01) ==
LOC: HO.CT 10:34
PROVIDERS: PCP Nurse Practitioner; Visit Provider Surgery
DX: R19.8 Other specified symptoms and signs involving the digestive system and abdomen (principal)
CPT/HCPCS: 72193; Q9967

== ENCOUNTER → 2022-10-16 08:39 | Outpatient (BNVA) | payer MEDICAID, SELFPAY | PROVIDERS: PCP Nurse Practitioner; Visit Provider Surgery | DX: K61.0 Anal abscess (principal); R19.8 Other specified symptoms and signs involving the digestive system and abdomen | CPT/HCPCS: 99212 ==

== ENCOUNTER → 2023-01-22 14:45 | Outpatient (BNVA) | payer MEDICAID, SELFPAY | PROVIDERS: PCP Nurse Practitioner; Visit Provider Surgery | DX: K62.89 Other specified diseases of anus and rectum (principal) | CPT/HCPCS: 99212 ==

== ENCOUNTER 2023-08-21 00:36 | Emergency (ER) | payer BC, SELFPAY ==
--- NOTE | ~2023-08-21 | XR_ITS ---
EXAMINATION: XR CHEST CLINICAL INFORMATION: Dyspnea COMPARISON: 08/09/2022 TECHNIQUE: 2 views of the chest were obtained. FINDINGS: The lungs are clear with no focal consolidation. No evidence of pneumothorax, pulmonary edema, or pleural effusions. The cardiomediastinal silhouette is unremarkable. No acute osseous findings. XR/XR chest 2V IMPRESSION: No acute cardiopulmonary findings.
[2023-08-21 00:54] VITALS: BP 124/65; PULSE 76; RESP 18; TEMP 37; O2SAT 96; BMI 35.5
[2023-08-21 01:12] VITALS: BP 152/94; PULSE 74; RESP 14; TEMP 36.7; O2SAT 97
[2023-08-21 01:53] LABS: Influenza A PCR NEGATIVE (Negative); Influenza B PCR NEGATIVE (Negative); Resp Syncy Virus RNA Qual PCR NEGATIVE (Negative); SARS COV2 PCR INHOUSE NEGATIVE (Negative)
--- NOTE | 2023-08-21 02:45 | ED_ITS ---
HPI - URI/Sore Throat General Chief Complaint: Upper Respiratory Symptoms Stated Complaint: Diff Breathing Time Seen by Provider: 08/21/23 01:12 Source: patient Mode of arrival: ambulatory Limitations: no limitations History of Present Illness HPI Narrative: Patient anxiety with frequent cough complaining cough for last few days also complaining of feeling short of breath with upper body pain saturating 97% on ro om air with history of anxiety. No fever no chills Related Data Home Medications Medication Instructions Recorded Confirmed albuterol sulfate 90 mcg/actuation 2 puff PO QID PRN Wheezing 02/14/22 01/22/23 aerosol inhaler (ProAir HFA) Previous Rx's Medication Instructions Recorded docusate sodium 100 mg capsule 100 mg PO BID #60 caps 11/07/21 (Colace) albuterol sulfate 90 mcg/actuation 2 puff inhalation Q4-6H PRN 08/09/22 aerosol inhaler shortness of breath or wheezing #6.7 grams Allergies Allergy/AdvReac Type Severity Reaction Status Date / Time aspirin [ASA] Allergy Unknown BREATHING Verified 01/22/23 15:10 DIFFICULTY Review of Systems Review of Systems: Yes all other systems are reviewed and are negative [facility] Past Medical History Medical History Perianal pain Anal discharge Bradycardia Perianal abscess Asthma Family History Family History Mother Cervical cancer Diabetes Heart problem Father Arthritis Prostate cancer Social History Alcohol intake: never Patient Tobacco Use Status: Never used Tobacco Smoked in Last 30 Days: No Use of substances other than those prescribed or required for medical reasons: No Advance Directives: No Advance Directives Information Provided: No Physical Exam Vital Signs: Vital Signs: Last Vital Signs Temp 98.0 F 08/21/23 01:12 Pulse 74 08/21/23 01:12 Resp 14 08/21/23 01:12 BP 152/94 H 08/21/23 01:12 Pulse Ox 97 08/21/23 01:12 O2 Del Method Room Air 08/21/23 01:12 BMI result Body Mass Index 35.5 Appearance: Alert. Oriented X3. No acute distress. ENT: Pharynx normal. Oral Mucosa moist Neck: Normal inspection. Neck supple. CVS: Normal heart rate and rhythm. Pulses normal. Respiratory: No respiratory distress. Equal air entry bilateral, no wheezing/rales/rhonchi Abdomen: Soft and nontender. Bowel sounds are present, Skin: Skin warm and dry. Normal skin color. Normal skin turgor. Extremities: No lower extremity edema. No calf tenderness Neuro: Oriented X 3. Medical Decision Making Medical Decision Making [facility] Narrative: Pretty nonspecific complaint likely with anxiety a viral syndrome COVID/flu/RSV negative discharge patient home advised to take ibuprofen as needed Lab Data MDM Lab Attestation statement: I reviewed the patient's lab results. Labs: Lab Results 08/21/23 Range/Units 01:05 Influenza Type A (PCR) NEGATIVE (Negative) Influenza Type B (PCR) NEGATIVE (Negative) RSV RNA Qual (PCR) NEGATIVE (Negative) SARS-CoV-2 RNA (RT-PCR) NEGATIVE (Negative) Discharge Plan Discharge Clinical Impression: Musculoskeletal chest pain Patient Disposition: Home, Self-Care Instructions: Chest Wall Pain (ED) Additional Instructions: Take ibuprofen for pain chest x-ray COVID flu negative Prescriptions: No Action albuterol sulfate [ProAir HFA] 90 mcg/actuation HFA aerosol inhaler 2 puff PO QID PRN (Reason: Wheezing) docusate sodium [Colace] 100 mg capsule 100 mg PO BID Qty: 60 2RF albuterol sulfate 90 mcg/actuation HFA aerosol inhaler 2 puff inhalation Q4-6H PRN (Reason: shortness of breath or wheezing) Qty: 6.7 0RF
[2023-08-21 02:52] VITALS: BP 131/79; PULSE 74; RESP 16; O2SAT 93
== END 2023-08-21 02:54 | disposition home or self-care (01) ==
PROVIDERS: Emergency Provider Internal Medicine
DX: R07.89 Other chest pain (principal); R06.02 Shortness of breath; R05.9 Cough, unspecified; Z20.822 Contact with and (suspected) exposure to COVID-19; Z20.828 Contact with and (suspected) exposure to other viral communicable diseases
CPT/HCPCS: 0241U; 71046; 99283; 99284

== ENCOUNTER 2023-08-25 05:44 | Emergency (ER) | payer BC, SELFPAY ==
--- NOTE | ~2023-08-25 | CT_ITS ---
EXAMINATION: CT ABDOMEN AND PELVIS WITH CONTRAST CLINICAL INFORMATION: Peritoneal signs positive. COMPARISON: CT pelvis 10/03/2022 TECHNIQUE: Multidetector volumetric images were obtained from the superior aspect of the liver through the pubic symphysis following administration 85 mL of Omnipaque 350 intravenous contrast. Sagittal and coronal reformatted images were obtained on the technologist's workstation. Oral contrast: No This CT examination was performed using dose optimization techniques as appropriate, variously including the following: *Automated exposure control *Adjustment of mA and/or kV according to patient size (this includes techniques or standardized protocols for targeted exams where dose is matched to indication/reason for exam; i.e. extremities or head) *Use of iterative reconstruction technique DLP: 811 mGy-cm FINDINGS: LUNG BASES: The visualized lung bases are unremarkable. LIVER, GALLBLADDER, AND BILIARY TREE: The liver is normal in size, shape, and attenuation. No focal hepatic lesion or biliary ductal dilatation is present. The gallbladder is unremarkable with no evidence of radiopaque gallstones, gallbladder wall thickening, or obvious pericholecystic inflammatory changes. PANCREAS: Unremarkable. SPLEEN: Unremarkable. ADRENAL GLANDS: Unremarkable. KIDNEYS AND URETERS: The kidneys are normal in size, shape, and attenuation. No hydronephrosis, hydroureter, or calculi seen. No perinephric stranding. BLADDER: Unremarkable. GASTROINTESTINAL TRACT: There are multiple dilated small bowel loops with air-fluid level extending the right midabdomen. There is mural thickening involving a loop of small bowel best visualized on coronal segment 38/6 on axial segment 53/3 and sagittal image 36/7. There is fecal residue in some of the distal ileum loops. Findings suspicious for enteritis. The ileocecal junction lies in the right mid pelvis the colon is decompressed. The stomach is distended with air-fluid level. No free air or free fluid seen. ABDOMINAL WALL: No significant hernia is appreciated. LYMPH NODES: Normal. VASCULAR: Unremarkable. PELVIC VISCERA: There is no free fluid. The prostate is normal size. No abnormal size pelvic or inguinal lymph nodes. No evidence of hernia. OSSEOUS STRUCTURES: No aggressive lytic or sclerotic process seen. CT/CT abdomen pelvis w IV con IMPRESSION: 1. Multiple dilated small bowel loops with air-fluid level extending to the right midabdomen. There is a loop of small bowel with mural thickening. There is fecal residue in the distal ileum. Findings suspicious for enteritis. 2. No free air or free fluid seen. Fleischner guidelines were followed.
[2023-08-25 05:53] VITALS: BP 130/68; PULSE 86; RESP 20; TEMP 37.1; O2SAT 98; BMI 38.4
[2023-08-25 06:25] LABS: Alanine Aminotransferase 27 U/L (0-40); Alkaline Phosphatase 59 U/L (39-117); Anion Gap 13 (12-20); Aspartate Amino Transferase 20 U/L (5-37); Bilirubin Total 1.7 mg/dL (0.0-1.0); Blood Urea Nitrogen 12 mg/dL (9-16); Calcium 10.2 mg/dL (8.4-10.2); Carbon Dioxide 25 mmol/L (22-29); Chloride 103 mmol/L (96-108); Estimated Glomerular Filt Rate > 60; Glucose Random 134 mg/dL (60-115); Lipase 22 U/L (8-78); Potassium 4.1 mmol/L (3.3-5.1); Sodium 137 mmol/L (135-145); Total Protein 8.5 g/dL (6.5-8.0)
[2023-08-25 06:30] LABS: Hematocrit 46.3 % (42.0-52.0); Hemoglobin 15.6 g/dl (14.0-18.0); Mean Corpuscular HGB Conc 33.7 g/dl (31.0-36.0); Mean Corpuscular Hemoglobin 28.2 pg (27.0-33.0); Mean Corpuscular Volume 83.7 fL (80.0-98.0); Mean Platelet Volume 10.1 fL (9.4-12.4); Platelet Count 248 X10*3/uL (160-400); Red Blood Count 5.53 X10*6/uL (4.60-5.80); Red Cell Distribution Width 12.3 % (11.0-16.0); White Blood Count 9.9 X10*3/uL (4.8-10.8)
--- NOTE | 2023-08-25 06:38 | ED_ITS ---
HPI - General Adult General Chief complaint: Abdominal Pain Stated complaint: stomach pain, nausea Time Seen by Provider: 08/25/23 06:36 Source: patient Mode of arrival: ambulatory Limitations: no limitations History of Present Illness HPI narrative: Patient is a 27 year old assigned male at with no reported medical history presenting to the emergency department today with abdominal pain. Patient states that the pain started after he ate fast food and it is significantly worse when he tries to lay down. Patient describes the pain as all over his abdomen. Patient denies any dizziness, lightheadedness, fever, chills, blurry vision, double vision, loss of vision, chest pain, difficulty breathing, shortness of breath, back pain, night sweats, pain with urination, increased urinary frequency, increased urinary urgency, blood in his urine or stool, syncope or a near syncopal episode, recent trauma or falls, bowel incontinence, bladder incontinence, bowel retention, bladder retention, or any other complaints at this time. Onset (ago): hour(s) Location: abdomen Radiation: non-radiation Severity: mild Severity scale (1-10): 4 Quality: aching Pain Consistency: constant Relieving factors: none Exacerbating factors: other (lying down) Associated symptoms: nausea/vomiting Treatments prior to arrival: other (pepto bismol) Related Data Home Medications Medication Instructions Recorded Confirmed albuterol sulfate 90 mcg/actuation 2 puff PO QID PRN Wheezing 02/14/22 01/22/23 aerosol inhaler (ProAir HFA) Previous Rx's Medication Instructions Recorded docusate sodium 100 mg capsule 100 mg PO BID #60 caps 11/07/21 (Colace) albuterol sulfate 90 mcg/actuation 2 puff inhalation Q4-6H PRN 08/09/22 aerosol inhaler shortness of breath or wheezing #6.7 grams ondansetron 4 mg disintegrating 4 mg PO Q8H 3 days #9 tabs 08/25/23 tablet Allergies Allergy/AdvReac Type Severity Reaction Status Date / Time No Known Allergies Allergy Verified 08/25/23 05:56 Review of Systems 2 Constitutional: Constitutional: Reports no additional constitutional complaints, Denies chills, Denies fever(s) and Denies night sweats Eyes: Eyes: Reports no additional eye complaints, Denies blurry vision, Denies change in vision, Denies diplopia, Denies eye discharge, Denies loss of vision and Denies eye pain ENT: Denies dizziness Cardiovascular: Cardiovascular: Reports no additional cardiovascular complaints, Denies chest pain, Denies lightheadedness, Denies Loss of Consciousness and Denies dyspnea Respiratory: Respiratory: Reports no additional respiratory complaints and Denies dyspnea Gastrointestinal: Gastrointestinal: Reports no additional gastrointestinal complaints, Reports abdominal pain, Denies melena, Denies hematochezia, Denies change in bowel habits, Denies change in stool character, Reports diarrhea, Reports nausea and Reports vomiting Genitourinary: Genitourinary: Reports no additional male genitourinary complaints, Denies hematuria, Denies oliguria, Denies difficulty urinating, Denies dysuria, Denies urinary frequency, Denies urinary hesitancy, Denies urinary incontinence and Denies urinary urgency Musculoskeletal: Musculoskeletal: Reports no additional musculoskeletal complaints, Denies numbness and Denies tingling Neurologic: Denies dizziness, Denies loss of vision, Denies numbness and Denies tingling Psychiatric: Psychiatric: Reports no additional psychiatric complaints Endocrine: Endocrine: Reports no additional endocrine complaints Hematologic/Lymphatic: Hematologic/Lymphatic: Reports no additional hematologic/lymphatic complaints Allergic/Immunologic: Allergic/Immunologic: Reports no additional allergic/immunologic complaints PMFSH Past Medical History Attestation statement: The following information was validated with the patient. Source: old records reviewed and nursing notes reviewed Medical History Perianal pain Anal discharge Bradycardia Perianal abscess Asthma Family History Family History Mother Cervical cancer Diabetes Heart problem Father Arthritis Prostate cancer Social History Social History Alcohol intake: never Patient Tobacco Use Status: Never used Tobacco Use of substances other than those prescribed or required for medical reasons: No Advance Directives: No Advance Directives Information Provided: No Physical Exam ED Vital Signs: Vital Signs - 24 hr 08/25/23 05:53 08/25/23 07:24 Temperature 98.7 F Pulse Rate 86 80 Respiratory Rate 20 16 Blood Pressure 130/68 139/81 Pulse Oximetry 98 96 Oxygen Delivery Method Room Air Room Air BMI result Body Mass Index 38.4 Const General: cooperative, no acute distress, alert and awake Nutritional Appearance: well nourished Orientation/consciousness: patient oriented x3 Limitations: no limitations HENMT Head: Yes normal to inspection and Yes atraumatic Ears: hearing grossly normal bilaterally and external ears normal General nose exam: Normal external nose present, no nasal discharge noted and no epistaxis Face and sinus: Yes normal facial exam, No abrasion and No laceration Mouth: Normal oral and palatal mucosa present, no drooling and no muffled voice Eyes General: appearance normal, both eyes and all related structures Periorbital: periorbital findings normal Eyelids: Yes eyelids normal Conjunctivae: conjunctivae normal Pupils: Equal, round and reactive pupils present EOM: EOMs intact bilaterally Neck Neck: Yes normal visual inspection, Yes full ROM and Yes no lymphadenopathy Chest Chest palpation & inspection: normal inspection of the chest Resp Effort & Inspection: normal respiratory effort and able to speak in complete sentences GI Inspection: Yes normal to inspection Palpation (GI): Soft to palpation, not firm, Tenderness to palpation present (GI) other (diffuse), no guarding and not rigid Neuro General: patient oriented x3 and moves all extremities Cranial nerves: Yes Equal, round and reactive pupils present Cognition (Neuro): normal cognition Motor exam (neuro): 5/5 motor strength present throughout Sensory Exam: Normal double simultaneous stimulation for sensation Coordination: [id number] test normal Extrem General: Yes normal to inspection, Yes full ROM and Yes capillary refill normal Psych Appearance: grossly normal Mental Status: mental status grossly normal Affect: normal affect Attitude: cooperative Thought process: Normal thought process present Thought content: Normal thought content present Insight: Good insight present (Psych) Medications Administered Discontinued Medications Generic Name Dose Route Start Last Admin Trade Name Rubi PRN Reason Stop Dose Admin Sodium Chloride 1,000 mls @ 999 mls/hr 08/25/23 07:00 08/25/23 09:34 Ns IV 08/25/23 08:00 Infused .Q1H1M MOREINTA Infusion Morphine Sulfate 4 mg 08/25/23 06:51 08/25/23 08:00 Morphine Sulfate 4 Mg/Ml Cartridge IVPUSH 08/25/23 06:52 4 mg ONCE ONE Administration Protocol Ondansetron HCl 4 mg 08/25/23 06:51 08/25/23 08:01 Ondansetron Hcl 4 Mg/2 Ml Vial IVPUSH 08/25/23 06:52 4 mg ONCE ONE Administration Medical Decision Making Medical Decision Making [facility] Narrative: Patient is a 27 year old assigned male at with no reported medical history presenting to the emergency department today with abdominal pain. Patient's physical exam was as noted in the physical exam portion of this note. Patient's blood work was unremarkable. Patient's urine showed no acute process. Patient's abdomen/pelvis CT showed evidence of enteritis. I explained my physical exam findings as well as all test results to the patient and the patient's mother. I answered all questions asked by the patient and the patient's mother. Patient received IV fluids and IV morphine which he stated helped his symptoms significantly. I stressed the importance of the patient taking his medication as prescribed. I stressed the importance of the patient following up with his primary care provider. I stressed the importance of the patient returning to the emergency department immediately if his symptoms were to worsen or if he were to develop any dizziness, shortness of breath, difficulty breathing, chest pain, blurry vision, loss of vision, nausea, vomiting, abdominal pain, fever, chills, back pain, or any other complaints. Patient and the patient's mother verbalized agreement and understanding with this treatment plan and discharge. Differential Diagnosis Differential Diagnoses: The differential diagnosis associated with the presentation includes Enteritis Gastroenteritis Appendicitis Admission/Observation Consideration of admission/observation: Escalation of care including admission/observation considered Patient would have been admitted to the hospital had his work up had any findings where hospital admission was appropriate and his clinical presentation warranted hospital admission. Lab Data MDM Lab Attestation statement: I reviewed the patient's lab results. My interpretation of these studies and their corresponding values is that they are grossly normal. 08/25/23 06:03 08/25/23 06:03 Labs: Lab Results 08/25/23 08/25/23 Range/Units 06:03 07:31 WBC 9.9 (4.8-10.8) X10*3/uL RBC 5.53 (4.60-5.80) X10*6/uL Hgb 15.6 (14.0-18.0) g/dl Hct 46.3 (42.0-52.0) % MCV 83.7 (80.0-98.0) fL MCH 28.2 (27.0-33.0) pg MCHC 33.7 (31.0-36.0) g/dl RDW 12.3 (11.0-16.0) % Plt Count 248 (160-400) X10*3/uL MPV 10.1 (9.4-12.4) fL Absolute Nucleated RBC 0.000 (0.0-0.012) X10*3/uL Nucleated RBC % (auto) 0.0 (0.0-0.2) /100WBC Sodium 137 (135-145) mmol/L Potassium 4.1 (3.3-5.1) mmol/L Chloride 103 (96-108) mmol/L Carbon Dioxide 25 (22-29) mmol/L Anion Gap 13 (12-20) BUN 12 (9-16) mg/dL Creatinine 0.98 (0.5-1.4) mg/dL Estim Creat Clear Calc 146.0 Estimated GFR > 60 Random Glucose 134 H (60-115) mg/dL Calcium 10.2 D (8.4-10.2) mg/dL Total Bilirubin 1.7 H (0.0-1.0) mg/dL AST 20 (5-37) U/L ALT 27 (0-40) U/L Alkaline Phosphatase 59 (39-117) U/L Total Protein 8.5 H (6.5-8.0) g/dL Albumin 5.0 (3.5-5.0) g/dL Lipase 22 (8-78) U/L Urine Color Dark Yellow Urine Appearance Cloudy Urine pH 5.5 (5.0-9.0) Ur Specific [place] >= 1.030 H (1.005-1.025) Urine Protein Trace (Neg-Trace) mg/dL Urine Glucose (UA) Negative (Negative) mg/dL Urine Ketones Trace (Negative) mg/dL Urine Blood Negative (Negative) Urine Nitrite Negative (Negative) Ur Leukocyte Esterase Negative (Negative) Urine RBC 3-5 H (0-2) /HPF Urine WBC 0-5 (0-5) /HPF Ur Squamous Epith Cells 0-2 (0-2) /HPF Urine Bacteria None Seen (None Seen) Hyaline Casts 3-5 (0-2) /LPF Independent Interpretation I performed an independent interpretation of an: CT Scan Interpretation: My interpretation is in agreement with the radiologist's impression of this imaging study. - EXAMINATION: CT ABDOMEN AND PELVIS WITH CONTRAST CLINICAL INFORMATION: Peritoneal signs positive. COMPARISON: CT pelvis 10/03/2022 TECHNIQUE: Multidetector volumetric images were obtained from the superior aspect of the liver through the pubic symphysis following administration 85 mL of Omnipaque 350 intravenous contrast. Sagittal and coronal reformatted images were obtained on the technologist's workstation. Oral contrast: No This CT examination was performed using dose optimization techniques as appropriate, variously including the following: *Automated exposure control *Adjustment of mA and/or kV according to patient size (this includes techniques or standardized protocols for targeted exams where dose is matched to indication/reason for exam; i.e. extremities or head) *Use of iterative reconstruction technique DLP: 811 mGy-cm FINDINGS: LUNG BASES: The visualized lung bases are unremarkable. LIVER, GALLBLADDER, AND BILIARY TREE: The liver is normal in size, shape, and attenuation. No focal hepatic lesion or biliary ductal dilatation is present. The gallbladder is unremarkable with no evidence of radiopaque gallstones, gallbladder wall thickening, or obvious pericholecystic inflammatory changes. PANCREAS: Unremarkable. SPLEEN: Unremarkable. ADRENAL GLANDS: Unremarkable. KIDNEYS AND URETERS: The kidneys are normal in size, shape, and attenuation. No hydronephrosis, hydroureter, or calculi seen. No perinephric stranding. BLADDER: Unremarkable. GASTROINTESTINAL TRACT: There are multiple dilated small bowel loops with air-fluid level extending the right midabdomen. There is mural thickening involving a loop of small bowel best visualized on coronal segment 38/6 on axial segment 53/3 and sagittal image 36/7. There is fecal residue in some of the distal ileum loops. Findings suspicious for enteritis. The ileocecal junction lies in the right mid pelvis the colon is decompressed. The stomach is distended with air-fluid level. No free air or free fluid seen. ABDOMINAL WALL: No significant hernia is appreciated. LYMPH NODES: Normal. VASCULAR: Unremarkable. PELVIC VISCERA: There is no free fluid. The prostate is normal size. No abnormal size pelvic or inguinal lymph nodes. No evidence of hernia. OSSEOUS STRUCTURES: No aggressive lytic or sclerotic process seen. CT/CT abdomen pelvis w IV con IMPRESSION: 1. Multiple dilated small bowel loops with air-fluid level extending to the right midabdomen. There is a loop of small bowel with mural thickening. There is fecal residue in the distal ileum. Findings suspicious for enteritis. 2. No free air or free fluid seen. Fleischner guidelines were followed. Dictated By: Julian Hernandez MD Signed By: Electronically signed by Julian Hernandez MD 08/25/23 0956 Radiology Impression Discussion of test interpretation with radiology: I have reviewed the radiologist's reading. Independent Historian Clinical information obtained from an independent historian. History obtained from or confirmed by: Parent (patient's mother provided additional history and confirmed the history provided by the patient.) Prescription Management I considered prescription management with: Other (patient prescribed oral anti- emetics) Critical Care Time Critical Care Time Critical Care Time: Yes Total Critical Care Time: 35 Attestation: I spent 35 minutes of Critical Care Time with this patient. This does not include time spent on separately reported billable procedures. Discharge Plan Discharge Clinical Impression: Enteritis Patient Disposition: Home, Self-Care Instructions: Enteritis (ED) Additional Instructions: Follow up with your primary care provider. Return to the emergency department immediately if your symptoms worsen or if you develop any dizziness, shortness of breath, difficulty breathing, chest pain, blurry vision, loss of vision, nausea, vomiting, abdominal pain, fever, chills, back pain, or any other complaints. Prescriptions: New ondansetron 4 mg tablet,disintegrating 4 mg PO Q8H 3 Days Qty: 9 0RF No Action albuterol sulfate [ProAir HFA] 90 mcg/actuation HFA aerosol inhaler 2 puff PO QID PRN (Reason: Wheezing) docusate sodium [Colace] 100 mg capsule 100 mg PO BID Qty: 60 2RF albuterol sulfate 90 mcg/actuation HFA aerosol inhaler 2 puff inhalation Q4-6H PRN (Reason: shortness of breath or wheezing) Qty: 6.7 0RF Referrals: Lisa Alejo MD [Primary Care Provider] - Stand Alone Forms: Work/School Release Interventions: ED Discharge Assessment Last Done: 08/25/23 10:33 Discharge Date/Time: 08/25/23 10:33 Print Language: Belarusian
[2023-08-25 07:24] VITALS: BP 139/81; PULSE 80; RESP 16; O2SAT 96
[2023-08-25 07:46] LABS: Appearance Urine Cloudy; Color Urine Dark Yellow; Glucose Urine UA Negative (Negative); Leukocyte Esterase Urine Negative (Negative); Nitrite Urine Negative (Negative); PH 5.5 (5.0-9.0); Specific Gravity - Urine >= 1.030 (1.005-1.025); Urine Blood Negative (Negative); Urine Ketones Trace mg/dL (Negative); Urine Protein Trace mg/dL (Neg-Trace)
[2023-08-25 07:49] LABS: Bacteria Urine None Seen (None Seen); Squamous Epithelial Cell Urine 0-2 /HPF (0-2); WBC Urine 0-5 /HPF (0-5)
[2023-08-25] MEDS: Morphine Sulfate 4 MG/ML CARTRIDGE IVPUSH (08:00)
[2023-08-25] MEDS: 0.9 % Sodium Chloride 1,000 ML 999 ML IV (08:01)
[2023-08-25] MEDS: ondansetron HCL 4 MG/2 ML VIAL IVPUSH (08:01)
--- NOTE | 2023-08-25 08:18 | PC.NURSE ---
ALERT AND ORIENTED, VSS. C/O 9/10 SHARP LOWER BACK PAIN THAT RADIATES TO HIS UPPER AND LOWER QUADRANTS. HE C/O NAUSEA NO VOMITING NO DIARRHEA. HE STATES THAT THE PAIN STARTED LAST NIGHT AROUND 8 PM. 20G IV INSERTED RAC, FLUIDS STARTED, MEDS GIVEN DOCUMENTED. PT CURRENTLY IN CT.
== END 2023-08-25 10:33 | disposition home or self-care (01) ==
PROVIDERS: Emergency Provider Emergency Medicine; PCP Internal Medicine
DX: K52.9 Noninfective gastroenteritis and colitis, unspecified (principal); R11.2 Nausea with vomiting, unspecified; E66.9 Obesity, unspecified; Z68.38 Body mass index [BMI] 38.0-38.9, adult
CPT/HCPCS: 36415; 74177; 80053; 81001; 83690; 85027; 96361; 96374; 96375; 99284; J2270; J2405

== ENCOUNTER 2024-01-19 07:28 | Outpatient (AMB) | payer BC, SELFPAY ==
[2024-01-19 07:31] VITALS: BP 134/82; PULSE 85; O2SAT 98; BMI 33.8
--- NOTE | 2024-01-19 07:31 | A.OFFPC_ITS ---
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 Medicine Specialist Required: No Accompanied by: Self / Same As Patient Allergies No Known Allergies Allergy (Verified 01/19/24 07:53) Medication List - Last Reconciled 01/19/24 by Lisa Lora MD albuterol sulfate 90 mcg/actuation 2 puffs inhalation Q4-6H PRN Tobacco use date assessed: 01/19/24 Dental Screening Dental Screen Date: 01/19/24 Did you have a dental visit in the last 12 months?: Yes Did you have a dental problem in the last 6 months where you did not have access to dental care?: No Was dental information given to patient?: Patient has dentist HPI HPI Comments History of Present Illness Details This is a 28-year-old male with moderate major depression that comes for his physical as a new patient. He just started counseling for his depression and has no suicidal thoughts. Declines wanting to start medication. He also had a home sleep study that show mild obstructive sleep apnea but when he had does sleep study at the lab it was inconclusive. Will be referred to sleep Medicine. He is obese with a BMI of 33.8 and says that when his and shows he tends to over eat. Was advised to start diet and exercise. BMI goal is less than 30. Up-to-date in his vaccines. [facility] Medical History (Updated 01/19/24 @ 08:11 by Lisa Lora MD) Perianal pain Anal discharge Bradycardia Asthma Surgical History (Updated 01/19/24 @ 08:11 by Lisa Lora MD) Left forearm fracture Perianal abscess Family History Mother Cervical cancer Diabetes Heart problem Neuropathy Father Arthritis Prostate cancer Hypertension Brother No problems noted. Brother No problems noted. Brother No problems noted. Sister Lupus Hypoglycemia Sister Mental health disorder Sister No problems noted. Sister No problems noted. 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 1. Little interest or pleasure in doing things: more than half the days 2. Feeling down, depressed, or hopeless: nearly every day 3. Trouble falling or staying asleep, or sleeping too much: nearly every day 4. Feeling tired or having little energy: nearly every day 5. Poor appetite or overeating: nearly every day 6. Feeling bad about yourself - or that you are a failure or have let yourself or your family down: nearly every day 7. Trouble concentrating on things, such as reading the newspaper or watching television: several days 8. Moving or speaking so slowly that other people could have noticed. Or the opposite - being so fidgety or restless that you have been moving around a lot more than usual: more than half the days 9. Thoughts that you would be better off or of hurting yourself in some way: not at all Total score: 20 Depression Screening Interpretation: Positive (no suicidal thoughts) Depression Screening Follow-up: Existing condition, In treatment, Community Mental Health Worker F/U and Follow-up Visit Requested Depression Screening Done: Yes 26183 - PHQ-9 Billing: Yes Source: Developed by Drs. Jero Sarah, Yolanda Camacho, Tarik Carvajal and colleagues, with an educational daniela from [employer]. Thrive Questionnaire Date Thrive assessed: 01/19/24 I am a: Patient What is your living situation today?: I have a steady place to live Within the past 12 months, did the food you bought not last and you didn't have the money to get more?: Never true Within the past 12 months, did you worry whether your food would run out before you got money to buy more?: Never true Do you have trouble paying for medicines?: No Do you have trouble getting transportation to medical appointments?: No Do you have trouble paying your heating and electricity bill?: No Do you have trouble taking care of your child, family member or friend?: No Do you have trouble with day-to-day activities such as bathing, preparing meals, shopping, managing finances, etc.?: No Are you currently unemployed and looking for a job?: No Are you interested in more education?: No Currently or been in a relationship where the following occur: no concerns reported THRIVE Score: 0 AUDIT C Alcohol Use Questionnaire (AUDIT-C) 1. How often do you have a drink containing alcohol?: Monthly or less 2. How many drinks containing alcohol do you have on a typical day when you are drinking?: 1 or 2 3. How often do you have six or more drinks on one occasion?: Never Total Score: 1 Score Reviewed/Action Taken: No AIDEE-7 AMB Questionnaire AIDEE-7 Date AIDEE - 7 assessed: 01/19/24 Feeling nervous, anxious, or on edge: 2 = More than half the days Not being able to stop or control worryin = Several days Worrying too much about different things: 2 = More than half the days Trouble relaxin = Several days Being so restless that it is hard to sit still: 0 = Not at all Becoming easily annoyed or irritable: 1 = Several days Feeling afraid as if something awful might happen: 0 = Not at all Total AIDEE-7 score (0-4 normal; 5-9 mild; 10-14 moderate; 15-21 severe): 7 Source: Developed by Drs. Jero Sarah, Yolanda Camacho, Tarik Carvajal and colleagues, with an educational daniela from [employer]. AIDEE-7 Assessment Billing AIDEE-7 Assessment Tool: AIDEE-7 Assessment 98188 Review of Systems Const All systems reviewed & are unremarkable except as noted in HPI and below Eyes Reports no additional complaints, Denies change in vision and Denies other visual disturbances Card Denies chest pain at rest, Denies chest pain with activity, Denies edema, Denies irregular heart rhythm, Denies claudication, Denies dyspnea, Denies dyspnea on exertion, Denies orthopnea, Denies paroxysmal nocturnal dyspnea and Denies slow heart rate Resp Denies cough, Denies dyspnea and Denies dyspnea on exertion GI Denies abdominal pain, Denies change in bowel habits, Denies excessive flatus, Denies nausea and Denies vomiting Denies urinary hesitancy, Denies urinary incontinence and Denies urinary urgency Psych Reports anxiety and Reports depression Physical exam (Primary Care) Vital Signs: Last Vital Signs Pulse 85 01/19/24 07:31 BP 134/82 01/19/24 07:31 Pulse Ox 98 01/19/24 07:31 Oxygen Delivery Method Room Air 01/19/24 07:31 BMI result Body Mass Index 33.8 BMI Assessment/Plan discussion: High BMI High, discussed plan: lifestyle, weight reduction, dietary and physical activity Tobacco/Smoking Status: Tobacco use Status Tobacco use date assessed 01/19/24 01/19/24 07:45 Patient Tobacco Use Status Never used Tobacco 01/19/24 07:45 e-Cigarette/Vaping Use Never Used 01/19/24 07:45 PHQ-9: PHQ-9 Score PHQ-9: Total score 20 01/19/24 07:45 Depression Screening Interpretation: Positive (no suicidal thoughts) Depression Screening Follow-up: Existing condition, In treatment, Community Mental Health Worker F/U and Follow-up Visit Requested Thrive Assessment: Date of Thrive Assessment Date Thrive assessed 01/19/24 01/19/24 07:45 Currently or been in a relationship where the following occur: no concerns reported Const Orientation/consciousness: patient oriented x3 HENMT Head: Yes normal to inspection, Yes normocephalic and Yes atraumatic Ears: external ears normal Eyes General: appearance normal, both eyes and all related structures Eyelids: Yes eyelids normal Conjunctivae: conjunctivae normal Neck Neck: Yes normal visual inspection and Yes supple Resp Effort & Inspection: normal respiratory effort Auscultation: clear to auscultation bilaterally Cardio Jugular venous distension: no JVD Rate: regular rate Rhythm: regular rhythm Heart sounds: S1 normal heart sound present and S2 normal heart sound present GI Inspection: Yes normal to inspection Palpation (GI): Soft to palpation and nontender Auscultation: normal bowel sounds Skin General skin exam: no rashes or lesions noted Neuro General: patient oriented x3 and no focal motor deficits Extrem General: Yes full ROM Psych Affect: Sad affect present Assessment and Plan Assessment & Plan (1) Physical exam: Code(s): Z00.00 - Encounter for general adult medical examination without abnormal findings Plan: Repeat in a year. (2) Moderate major depression: Code(s): F32.1 - Major depressive disorder, single episode, moderate Plan: Continue counseling. Orders: Orders Lipid Panel Today Z00.00 - Encounter for general adult medical examination without abnormal findings Complete Blood Count Auto Diff Today E66.9 - Obesity, unspecified Thyroid Stimulating Hormone Today E66.9 - Obesity, unspecified Comprehensive [place]. Panel Fast Today Z00.00 - Encounter for general adult medical examination without abnormal findings Referrals Sleep Medicine Referral G47.33 - Obstructive sleep apnea (adult) (pediatric) Coding Level of Care Code New Pt Prev Care 18-39yr([id number] Diagnoses Physical exam Z00.00 Moderate major depression F32.1 Additional Codes AIDEE-7 Assessment Billing - AIDEE-7 Assessment Tool: AIDEE-7 Assessment 43435 ([id number]) Time Spent (min) 35
== END 2024-01-19 08:07 | disposition home or self-care (01) ==
PROVIDERS: PCP Internal Medicine; Visit Provider Internal Medicine
DX: Z00.00 Encounter for general adult medical examination without abnormal findings (principal); F32.1 Major depressive disorder, single episode, moderate
CPT/HCPCS: 99385

== ENCOUNTER 2024-03-05 08:55 | Outpatient (REF) | payer BC, SELFPAY ==
[2024-03-05 09:01] LABS: MANUAL DIFF FLAG NO
[2024-03-05 09:36] LABS: Basophils Absolute Auto 0.1 X10*3/uL (0.0-0.2); Basophils Percent Auto 1.2 % (0-2); Eosinophils Absolute Auto 0.1 X10*3/uL (0.0-0.4); Eosinophils Percent Auto 2.2 % (0-4); Hematocrit 43.9 % (42.0-52.0); Hemoglobin 14.7 g/dl (14.0-18.0); Imm Gran Abs Auto 0.01 X10*3/uL (0.00-0.03); Imm Gran Pct Auto 0.2 % (0.0-0.4); Lymphocytes Absolute Auto 1.9 X10*3/uL (1.2-4.9); Lymphocytes Percent Auto 37.9 % (20-40); Mean Corpuscular HGB Conc 33.5 g/dl (31.0-36.0); Mean Corpuscular Hemoglobin 28.7 pg (27.0-33.0); Mean Corpuscular Volume 85.6 fL (80.0-98.0); Mean Platelet Volume 10.3 fL (9.4-12.4); Monocytes Absolute Auto 0.5 X10*3/uL (0.1-1.2); Monocytes Percent Auto 10.2 % (2-11); Neutrophils Absolute Auto 2.4 x10*3/uL (2.0-8.3); Neutrophils Percent Auto 48.3 % (45-73); Platelet Count 250 X10*3/uL (160-400); Red Blood Count 5.13 X10*6/uL (4.60-5.80); Red Cell Distribution Width 12.7 % (11.0-16.0)
[2024-03-05 10:13] LABS: Alanine Aminotransferase 35 U/L (0-40); Albumin Level 4.7 g/dL (3.5-5.0); Alkaline Phosphatase 62 U/L (39-117); Anion Gap 14 (12-20); Aspartate Amino Transferase 38 U/L (5-37); Bilirubin Total 1.9 mg/dL (0.0-1.0); Blood Urea Nitrogen 13 mg/dL (9-16); Calcium 9.7 mg/dL (8.4-10.2); Carbon Dioxide 22 mmol/L (22-29); Chloride 108 mmol/L (96-108); Cholesterol 158 mg/dL (<200); Estimated Glomerular Filt Rate > 60; Glucose Fasting 87 mg/dL (60-99); HDL Cholesterol 32 mg/dL (>40); LDL Cholesterol Calculated 95 mg/dL (<100); Potassium 3.8 mmol/L (3.3-5.1); Sodium 140 mmol/L (135-145); Total Protein 7.7 g/dL (6.5-8.0); Triglycerides 158 mg/dL (<150)
[2024-03-05 10:30] LABS: Thyroid Stimulating Hormone 1.57 uIU/mL (0.32-4.0)
== END 2024-03-05 08:56 | disposition home or self-care (01) ==
LOC: HO.LAB 08:55
PROVIDERS: PCP Internal Medicine; Visit Provider Internal Medicine
DX: Z00.00 Encounter for general adult medical examination without abnormal findings (principal); E66.9 Obesity, unspecified
CPT/HCPCS: 36415; 80053; 80061; 84443; 85025

== ENCOUNTER 2024-10-20 15:36 | Outpatient (AMB) | payer BC, SELFPAY ==
--- NOTE | 2024-10-20 15:45 | A.OFFPC_ITS ---
Vital Signs 10/20/24 15:47 Height 5 ft 9 in Weight 230 lb BMI 34.0 BP 132/80 Blood Pressure Location Lt brachial Position Sitting Intake Visit Reasons: depression, anxiety Intake Note: Patient here for a follow up depression, anxiety Bulk Receiver Required: No Accompanied by: Self / Same As Patient Allergies No Known Allergies Allergy (Verified 10/20/24 15:55) Medication List - Last Reconciled 10/20/24 by Lisa Lora MD albuterol sulfate 90 mcg/actuation 2 puffs inhalation Q4-6H PRN Tobacco use date assessed: 10/20/24 Dental Screening Dental Screen Date: 10/20/24 Did you have a dental visit in the last 12 months?: Yes Did you have a dental problem in the last 6 months where you did not have access to dental care?: No Was dental information given to patient?: Patient has dentist HPI HPI Comments History of Present Illness Details The patient is a 28-year-old male presenting for his physical exam. Denies any acute complaints. Needs titers for work. Vaccines up-to-date. Has moderate major depression follow by counseling that has markedly improved. [facility] Medical History Perianal pain Anal discharge Bradycardia Asthma Surgical History Left forearm fracture Perianal abscess Family History Mother Cervical cancer Diabetes Heart problem Neuropathy Father Arthritis Prostate cancer Hypertension Brother No problems noted. Brother No problems noted. Brother No problems noted. Sister Lupus Hypoglycemia Sister Mental health disorder Sister No problems noted. Sister No problems noted. 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 1. Little interest or pleasure in doing things: not at all 2. Feeling down, depressed, or hopeless: several days 3. Trouble falling or staying asleep, or sleeping too much: not at all 4. Feeling tired or having little energy: not at all 5. Poor appetite or overeating: several days 6. Feeling bad about yourself - or that you are a failure or have let yourself or your family down: not at all 7. Trouble concentrating on things, such as reading the newspaper or watching television: not at all 8. Moving or speaking so slowly that other people could have noticed. Or the opposite - being so fidgety or restless that you have been moving around a lot more than usual: not at all 9. Thoughts that you would be better off or of hurting yourself in some way: not at all Total score: 2 Depression Screening Interpretation: Positive Depression Screening Follow-up: Existing condition, Community Mental Health Worker F/U and Follow-up Visit Requested Depression Screening Done: Yes 37482 - PHQ-9 Billing: Yes Source: Developed by Drs. Jero Sarah, Yolanda Camacho, Tarik Carvajal and colleagues, with an educational daniela from [employer]. Thrive Questionnaire Date Thrive assessed: 10/20/24 I am a: Patient What is your living situation today?: I have a steady place to live Within the past 12 months, did the food you bought not last and you didn't have the money to get more?: Never true Within the past 12 months, did you worry whether your food would run out before you got money to buy more?: Never true Do you have trouble paying for medicines?: No Do you have trouble getting transportation to medical appointments?: No Do you have trouble paying your heating and electricity bill?: No Do you have trouble taking care of your child, family member or friend?: No Do you have trouble with day-to-day activities such as bathing, preparing meals, shopping, managing finances, etc.?: No Are you currently unemployed and looking for a job?: No Are you interested in more education?: No Please select the resources that you would like help with: None Currently or been in a relationship where the following occur: No concerns reported THRIVE Score: 0 AUDIT C Alcohol Use Questionnaire (AUDIT-C) 1. How often do you have a drink containing alcohol?: Never Total Score: 0 Score Reviewed/Action Taken: No AIDEE-7 AMB Questionnaire AIDEE-7 Date AIDEE - 7 assessed: 10/20/24 Feeling nervous, anxious, or on edge: 0 = Not at all Not being able to stop or control worryin = Not at all Worrying too much about different things: 1 = Several days Trouble relaxin = Not at all Being so restless that it is hard to sit still: 0 = Not at all Becoming easily annoyed or irritable: 0 = Not at all Feeling afraid as if something awful might happen: 0 = Not at all Total AIDEE-7 score (0-4 normal; 5-9 mild; 10-14 moderate; 15-21 severe): 1 Source: Developed by Drs. Jero Sarah, Yolanda Camacho, Tarik Carvajal and colleagues, with an educational daniela from [employer]. AIDEE-7 Assessment Billing AIEDE-7 Assessment Tool: AIDEE-7 Assessment 58932 Review of Systems Const All systems reviewed & are unremarkable except as noted in HPI and below Card Denies chest pain at rest, Denies chest pain with activity, Denies edema, Denies irregular heart rhythm, Denies claudication, Denies dyspnea, Denies dyspnea on exertion, Denies orthopnea, Denies paroxysmal nocturnal dyspnea and Denies slow heart rate Resp Denies cough, Denies dyspnea and Denies dyspnea on exertion Skin/Breast Denies bleeding lesions, Denies changing lesions and Denies rash Physical exam (Primary Care) Vital Signs: Last Vital Signs BP 132/80 10/20/24 15:47 BMI result Body Mass Index 34.0 BMI Assessment/Plan discussion: High BMI High, discussed plan: lifestyle, weight reduction, dietary and physical activity Tobacco/Smoking Status: Tobacco use Status Tobacco use date assessed 10/20/24 10/20/24 15:52 Patient Tobacco Use Status Former Tobacco user 10/20/24 15:45 e-Cigarette/Vaping Use Never Used 10/20/24 15:45 PHQ-9: PHQ-9 Score PHQ-9: Total score 2 10/20/24 16:27 Depression Screening Interpretation: Positive Depression Screening Follow-up: Existing condition, Community Mental Health Worker F/U and Follow-up Visit Requested Thrive Assessment: Date of Thrive Assessment Date Thrive assessed 10/20/24 10/20/24 15:52 Currently or been in a relationship where the following occur: No concerns reported [facility] Head: Yes normal to inspection, Yes normocephalic and Yes atraumatic Ears: external ears normal Eyes General: appearance normal, both eyes and all related structures Eyelids: Yes eyelids normal Conjunctivae: conjunctivae normal Neck Neck: Yes normal visual inspection and Yes supple Resp Effort & Inspection: normal respiratory effort Auscultation: clear to auscultation bilaterally Cardio Jugular venous distension: no JVD Rate: regular rate Rhythm: regular rhythm Heart sounds: S1 normal heart sound present and S2 normal heart sound present GI Inspection: Yes normal to inspection Palpation (GI): Soft to palpation and nontender Auscultation: normal bowel sounds Skin General skin exam: no rashes or lesions noted Neuro General: no focal motor deficits Extrem General: Yes full ROM Psych Appearance: grossly normal Office Procedures Flu Questionnaire Does the patient have a severe egg allergy?: No Does the patient have severe life threatening allergies?: No Does the patient have a fever or illness today?: No Has the patient ever had Guillain-[place] Syndrome?: No Has the patient ever had any past reaction to a flu shot?: No Immunizations Fluarix Triv [id number] (PF) 45 mcg (15 mcg x 3)/0.5 mL IM syringe Performing Provider: Lisa Lora MD [place] [facility] Administered by: Ariadne Vo RN on 10/20/24 16:27 Dose Route Admin Location Dispensed Lot Number Expiration Date [facility] Ingot Header 0.5 mL IM Left Deltoid 0.5 mL [id number] 03/27/25 [id number] [employer] VIS Given Date VIS Provided VIS Publication Date 10/20/24 Single Vaccine 21 Eligibility Eligibility Date Funding Source Not [facility] Eligible 10/20/24 Private Coding Level of Care Code Est Pt Prev Care 18-39y(53869) Diagnoses Physical exam Z00.00 Moderate major depression F32.1 Additional Codes AIDEE-7 Assessment Billing - IADEE-7 Assessment Tool: AIDEE-7 Assessment 47309 ([id number]) PHQ-9 - 23416 - PHQ-9 Billing: Yes ([id number]) Time Spent (min) 30 Assessment & Plan Assessment & Plan (1) Physical exam: Code(s): Z00.00 - Encounter for general adult medical examination without abnormal findings Category: Medical Plan: Repeat in a year. (2) Moderate major depression: Code(s): F32.1 - Major depressive disorder, single episode, moderate Category: Medical Plan: Continue counseling. Orders: Orders T Spot TB Today Z11.1 - Encounter for screening for respiratory tuberculosis Mumps Virus IgG Antibody Today Z23 - Encounter for immunization Varicella IgG Antibody Today Z23 - Encounter for immunization Rubella IgG Antibody Today Z23 - Encounter for immunization Rubeola IgG (Measles) Today Z23 - Encounter for immunization Influenza [id number] Immunization Today Z23 - Encounter for immunization Hepatitis B,C Profile Today Z23 - Encounter for immunization Medications: Refilled albuterol sulfate 90 mcg/actuation 2 puffs inhalation Q4-6H PRN 6.7 grams 0RF shortness of breath or wheezing
[2024-10-20 15:47] VITALS: BP 132/80; BMI 34.0
== END 2024-10-20 16:31 | disposition home or self-care (01) ==
PROVIDERS: PCP Internal Medicine; Visit Provider Internal Medicine
DX: Z00.00 Encounter for general adult medical examination without abnormal findings (principal); F32.1 Major depressive disorder, single episode, moderate; Z23 Encounter for immunization

== ENCOUNTER → 2024-10-20 15:36 | Outpatient (BNVA) | payer BC, SELFPAY | PROVIDERS: PCP Internal Medicine; Visit Provider Internal Medicine | DX: Z00.00 Encounter for general adult medical examination without abnormal findings (principal); Z23 Encounter for immunization; F32.1 Major depressive disorder, single episode, moderate | CPT/HCPCS: 90471; 90656; 96127 ==

== ENCOUNTER 2024-10-21 09:16 | Outpatient (REF) | payer BC, SELFPAY ==
[2024-10-22 08:20] LABS: HBS Num1 423.98 mIU/mL (0-7.99); HBc Num1 0.07 S/CO (0.00-0.79); HBsAGNum1 0.39 S/CO (0.00-0.99); Hepatitis B Core Antibody Nonreactive (Nonreactive); Hepatitis B Surface Antigen Negative (Negative); ~HepC Num1 0.17 S/CO (0.00-0.79); ~Hepatitis B Surface Antibody REACTIVE (Nonreactive); ~Hepatitis C Antibody Nonreactive (Nonreactive)
[2024-10-24 19:39] LABS: TS Negative Control Passed; TS Panel A 0; TS Panel B 0; TS Positive Control Passed; TSpotTB Negative (Negative)
[2024-10-24 22:03] LABS: Rubella IgG Antibody 6.43 Index
[2024-10-24 22:09] LABS: Varicella IgG Antibody 1.79 S/CO
== END 2024-10-21 09:17 | disposition home or self-care (01) ==
LOC: HO.LAB 09:16
PROVIDERS: PCP Internal Medicine; Visit Provider Internal Medicine
DX: Z11.1 Encounter for screening for respiratory tuberculosis (principal); Z01.84 Encounter for antibody response examination; Z11.59 Encounter for screening for other viral diseases
CPT/HCPCS: 36415; 86481; 86704; 86706; 86735; 86762; 86765; 86787; 86803; 87340

== ENCOUNTER → 2025-02-06 15:28 | Outpatient (BNVA) | payer BC, SELFPAY | PROVIDERS: PCP Internal Medicine; Visit Provider Nurse Practitioner Family ==